=== PATIENT | male | born 1945 | race Caucasian/White ===

== ENCOUNTER 2016-08-11 13:48 | Inpatient (IN) ==
[2016-08-11 14:29] LABS: Bilirubin,Urine Negative (Negative); Blood,Urine Large (Negative); Clarity,Urine Turbid (Clear); Color,Urine Dark Yellow (Yellow); Glucose,Urine (UA) Normal (Normal); Ketones,Urine Negative (Negative); Leukocyte Esterase,Urine Large (Negative); Nitrite,Urine Positive (Negative); PH,Urine 5.5 pH Units (5.0-8.0); Protein,Urine 100 mg/dL (Neg-Trace); Specific Gravity,Urine 1.016 (1.010-1.025); Urobilinogen,Urine Normal (Normal)
[2016-08-11 14:31] LABS: Bacteria,Urine Many per hpf (None-Few); RBC,Urine 30-50 per hpf (0-3); Squamous Epithelial Cell,Urine Many per lpf (None-Few); WBC,Urine TNTC per hpf (0-3)
--- NOTE | 2016-08-11 14:37 | Emergency Department Note ---
Disposition Clinical Impression: Confusion UTI (urinary tract infection) Qualifiers: Urinary tract infection type: acute cystitis Hematuria presence: without hematuria Qualified Code(s): N30.00 - Acute cystitis without hematuria Disposition: Admitted As Inpatient Condition: Fair Referrals: Elie Olivares MD [Primary Care Provider] - Forms: ED Satisfaction Letter Time of Disposition: 16:50 Abdominal Pain HPI - General Chief Complaint: ED Urogenital-Male Stated Complaint: Poss UTI Time Seen by Provider: 08/11/16 14:12 Source: EMS Mode of arrival: EMS Limitations: age, other (Previous CVA) Nursing Notes Reviewed: Yes Vital Signs Reviewed: Yes - History of Present Illness HPI Narrative: 70-year-old comes in with abdominal distention no bowel movement in a week or 2 , states that this occurs when he has a UTI. Y states she can no longer take care of him at home he's had a previous stroke and is dependent for his ADLs. Pt Subjective Complaint: abdominal pain Consistency: intermittent Pain Scale: 0 Quality: cramping Radiation: none Associated symptoms: Reports: constipation. Denies: nausea, vomiting, diarrhea - Related Data Home Medications Medication Instructions Recorded Confirmed Clopidogrel [Plavix] 75 mg PO DAILY 05/31/16 08/11/16 Lisinopril [Zestril] 40 mg PO DAILY 05/31/16 08/11/16 Metoprolol XL (24 HR) Succ [Toprol 50 mg PO DAILY 05/31/16 08/11/16 Xl] Simvastatin [Zocor] 20 mg PO HS 05/31/16 08/11/16 Terazosin [Hytrin] 1 mg PO HS 05/31/16 08/11/16 Venlafaxine XR (24 HR) [Effexor XR] 75 mg PO DAILY 05/31/16 08/11/16 Mirtazapine [Remeron] 15 mg PO HS 08/11/16 08/11/16 Multivitamin [Multi-Day Vitamins] 1 each PO DAILY 08/11/16 08/11/16 Previous Rx's Medication Instructions Recorded Docusate [Colace] 100 mg PO BID PRN #30 capsule 06/02/16 Allergies Allergy/AdvReac Type Severity Reaction Status Date / Time No Known Allergies Allergy Verified 05/30/16 23:20 Limitations: ROS unobtainable due to patients medical condition Abdominal Pain PMH - Past Medical History Medical history: Reports: COPD, CVA, hyperlipidemia, hypertension, renal disease , other Male Surgical History: Reports: other - Social History Smoking status: Former smoker Alcohol use: Reports: none Drug use: Reports: none Physical Exam - General Limitations: other General appearance: alert, in no apparent distress - Head Head exam: atraumatic, normocephalic, normal inspection - Eye Eye exam: Present: normal appearance, PERRL, EOMI - ENT ENT exam: normal exam, normal oropharynx, mucous membranes moist - Neck Neck exam: Present: normal inspection, full ROM, trachea midline - Chest Chest inspection: Present: normal inspection, symmetric chest wall rise - Respiratory Respiratory exam: Present: normal lung sounds bilaterally - Cardiovascular Cardiovascular exam: Present: regular rate, normal rhythm, normal heart sounds - Abdominal Exam Abdominal exam: Present: soft. Absent: guarding, rebound - Extremities Exam Extremities exam: Present: normal inspection, full ROM. Absent: tenderness, pedal edema - Expanded Lower Extremity Exam Neurovascular/Tendon exam: Absent: motor deficit, sensory deficit, tendon deficit Gait: observed and normal - Back Exam Back exam: Present: normal inspection, full ROM. Absent: tenderness - Neurological Exam Neurological exam: Present: alert, oriented X3 - Psychiatric Psychiatric exam: Present: normal affect, normal mood - Skin Skin exam: Present: warm, dry, intact, normal color Course - Consultations Consultation #1: Patient with increased confusion constipation, family states normally has UTI when the symptoms are present. says she cannot take care of the patient at home anymore. administrative services director saw the patient and is going to be in the process of making arrangements to get him into an extended care facility. Is having UTI. I did review his previous culture results he had Escherichia coli that was sensitive to everything we will give Rocephin. Time: 16:48 Vital Signs Temperature 98.6 F 08/11/16 13:52 Pulse Rate 101 08/11/16 13:52 Respiratory Rate 20 08/11/16 13:52 Blood Pressure 122/81 08/11/16 13:52 O2 Sat by Pulse Oximetry 99 08/11/16 13:52 Temperature 98.6 F 08/11/16 13:52 Pulse Rate 92 08/11/16 15:53 Respiratory Rate 20 08/11/16 15:53 Blood Pressure 115/91 08/11/16 15:53 O2 Sat by Pulse Oximetry 99 08/11/16 15:53 Oxygen Delivery Oxygen Delivery Nasal Cannula Abdominal Pain - Lab Data Result diagrams: 08/11/16 15:26 08/11/16 15:26 Lab Results 08/11/16 08/11/16 08/11/16 Range/Units 14:04 15:26 15:26 WBC 12.2 H (4.3-11.1) K/mcL RBC 4.04 L (4.19-5.50) M/mcL Hgb 11.4 L (12.9-16.9) g/dL Hct 37.1 L (37.5-50.1) % MCV 91.8 (83.0-100.0) fL MCH 28.2 (28.0-33.3) pg MCHC 30.7 L (31.6-35.5) g/dL RDW 14.1 (11.5-14.5) % Plt Count 261 (140-400) K/mcL MPV 9.0 L (9.4-12.4) fL Immature Gran % 0.5 (0-4) % Seg Neutrophils % 82.1 % Lymphocytes % 6.7 % Monocytes % 10.6 % Eosinophils % 0.0 % Basophils % 0.1 % Neutrophils # 10.0 H (1.6-8.9) K/mcL Lymphocytes # 0.8 (0.6-4.6) K/mcL Monocytes # 1.3 (0.0-1.3) K/mcL Eosinophils # 0.0 (0.0-0.6) K/mcL Basophils # 0.0 (0.0-0.2) K/mcL Immature Plt Fraction 2.6 (1.1-6.1) % PT 14.4 H (9.4-12.1) Seconds INR 1.3 APTT 28.4 (26.0-36.0) Seconds Sodium (136-145) mEq/L Potassium (3.5-4.5) mEq/L Chloride (98-109) mEq/L Carbon Dioxide (19-29) mEq/L BUN (8-26) mg/dL Creatinine (0.72-1.25) mg/dL Est GFR ( Amer) (> 60) Est GFR (Non-Af Amer) (> 60) BUN/Creatinine Ratio (6-26) Glucose (70-99) mg/dL Calculated Osmolality (280-300) Lactic Acid (0.5-2.2) mmol/L Calcium (8.6-10.8) mg/dL Total Bilirubin (0.2-1.2) mg/dL Direct Bilirubin (0.0-0.5) mg/dL Indirect Bilirubin (0.0-1.2) mg/dL AST (5-34) Units/L ALT (0-55) Units/L Alkaline Phosphatase (38-126) Units/L Troponin I (0-0.03) ng/mL Serum Total Protein (6.0-8.3) g/dL Albumin (3.5-5.0) g/dL Globulin (2.4-3.5) g/dL Albumin/Globulin Ratio (1.1-2.2) Amylase (25-125) Units/L Lipase (8-78) Units/L Urine Color Dark Yellow (Yellow) Urine Clarity Turbid A (Clear) Urine pH 5.5 (5.0-8.0) pH Units Ur Specific [place] 1.016 (1.010-1.025) Urine Protein 100 H (Neg-Trace) mg/dL Urine Glucose (UA) Normal (Normal) mg/dL Urine Ketones Negative (Negative) mg/dL Urine Blood Large H (Negative) Urine Nitrite Positive A (Negative) Urine Bilirubin Negative (Negative) Urine Urobilinogen Normal (Normal) mg/dL Ur Leukocyte Esterase Large H (Negative) Urine Microscopic RBC 30-50 H (0-3) per hpf Urine Microscopic WBC TNTC H (0-3) per hpf Ur Squamous Epith Cells Many H (None-Few) per lpf Urine Bacteria Many H (None-Few) per hpf Hyaline Casts Test Not Performed Ur Culture Indicated? YES A (NO) 08/11/16 08/11/16 08/11/16 Range/Units 15:26 15:26 15:26 WBC (4.3-11.1) K/mcL RBC (4.19-5.50) M/mcL Hgb (12.9-16.9) g/dL Hct (37.5-50.1) % MCV (83.0-100.0) fL MCH (28.0-33.3) pg MCHC (31.6-35.5) g/dL RDW (11.5-14.5) % Plt Count (140-400) K/mcL MPV (9.4-12.4) fL Immature Gran % (0-4) % Seg Neutrophils % % Lymphocytes % % Monocytes % % Eosinophils % % Basophils % % Neutrophils # (1.6-8.9) K/mcL Lymphocytes # (0.6-4.6) K/mcL Monocytes # (0.0-1.3) K/mcL Eosinophils # (0.0-0.6) K/mcL Basophils # (0.0-0.2) K/mcL Immature Plt Fraction (1.1-6.1) % PT (9.4-12.1) Seconds INR APTT (26.0-36.0) Seconds Sodium 140 (136-145) mEq/L Potassium 4.3 (3.5-4.5) mEq/L Chloride 103 (98-109) mEq/L Carbon Dioxide 26 (19-29) mEq/L BUN 20 (8-26) mg/dL Creatinine 1.83 H (0.72-1.25) mg/dL Est GFR ( Amer) 45 L (> 60) Est GFR (Non-Af Amer) 37 L (> 60) BUN/Creatinine Ratio 11 (6-26) Glucose 135 H (70-99) mg/dL Calculated Osmolality 295 (280-300) Lactic Acid 2.6 H (0.5-2.2) mmol/L Calcium 9.5 (8.6-10.8) mg/dL Total Bilirubin 0.7 (0.2-1.2) mg/dL Direct Bilirubin 0.4 (0.0-0.5) mg/dL Indirect Bilirubin 0.3 (0.0-1.2) mg/dL AST 35 H (5-34) Units/L ALT 32 (0-55) Units/L Alkaline Phosphatase 148 H (38-126) Units/L Troponin I 0.01 (0-0.03) ng/mL Serum Total Protein 7.1 (6.0-8.3) g/dL Albumin 2.7 L (3.5-5.0) g/dL Globulin 4.4 H (2.4-3.5) g/dL Albumin/Globulin Ratio 0.6 L (1.1-2.2) Amylase 54 (25-125) Units/L Lipase 21 (8-78) Units/L Urine Color (Yellow) Urine Clarity (Clear) Urine pH (5.0-8.0) pH Units Ur Specific [place] (1.010-1.025) Urine Protein (Neg-Trace) mg/dL Urine Glucose (UA) (Normal) mg/dL Urine Ketones (Negative) mg/dL Urine Blood (Negative) Urine Nitrite (Negative) Urine Bilirubin (Negative) Urine Urobilinogen (Normal) mg/dL Ur Leukocyte Esterase (Negative) Urine Microscopic RBC (0-3) per hpf Urine Microscopic WBC (0-3) per hpf Ur Squamous Epith Cells (None-Few) per lpf Urine Bacteria (None-Few) per hpf Hyaline Casts Ur Culture Indicated? (NO)
[2016-08-11 15:35] LABS: Basophils % 0.1 %; Hematocrit 37.1 % (37.5-50.1); Hemoglobin 11.4 g/dL (12.9-16.9); Immature Granulocytes % 0.5 % (0-4); Immature Platelets 2.6 % (1.1-6.1); Lymphocytes # 0.8 K/mcL (0.6-4.6); Lymphocytes % 6.7 %; Mean Corpuscular HGB Conc 30.7 g/dL (31.6-35.5); Mean Corpuscular Hemoglobin 28.2 pg (28.0-33.3); Mean Corpuscular Volume 91.8 fL (83.0-100.0); Monocytes # 1.3 K/mcL (0.0-1.3); Monocytes % 10.6 %; Platelet Count 261 K/mcL (140-400); Red Blood Count 4.04 M/mcL (4.19-5.50); Red Cell Distribution Width 14.1 % (11.5-14.5); Segmented Neutrophils % 82.1 %
[2016-08-11 15:40] LABS: INR 1.3; Prothrombin Time 14.4 Seconds (9.4-12.1)
[2016-08-11 15:42] LABS: Activated Partial Thrombo Time 28.4 Seconds (26.0-36.0)
[2016-08-11 15:50] LABS: Albumin 2.7 g/dL (3.5-5.0); Albumin/Globulin Ratio 0.6 (1.1-2.2); Bilirubin,Direct 0.4 mg/dL (0.0-0.5); Bilirubin,Indirect 0.3 mg/dL (0.0-1.2); Bilirubin,Total 0.7 mg/dL (0.2-1.2); Calcium 9.5 mg/dL (8.6-10.8); Globulin 4.4 g/dL (2.4-3.5); Potassium 4.3 mEq/L (3.5-4.5); Total Protein 7.1 g/dL (6.0-8.3)
[2016-08-11] MEDS ORDERED: Ondansetron 4 MG/2 ML VIAL IVP PRN (17:45)
[2016-08-11] MEDS ORDERED: Naloxone 0.4 MG/ML INJ IVP PRN (17:45)
--- NOTE | 2016-08-11 18:34 | Internal Med History&Physical ---
Date of Encounter: 08/11/16 Time of Encounter: 18:28 Assessment and Plan (1) UTI (urinary tract infection) Current visit: Yes Status: Acute roxanna continue ceftriaxone. follow urine cx results. not septic at this time. mental status at baseline. Qualifiers: Urinary tract infection type: acute cystitis Hematuria presence: without hematuria Qualified Code(s): N30.00 - Acute cystitis without hematuria (2) BPH (benign prostatic hypertrophy) Current visit: No Status: Acute Continue home meds. Wears diaper due to urinary incontinence. Qualifiers: Prostatic enlargement morphology: unspecified morphology Lower urinary tract symptom presence: symptoms present Qualified Code(s): N40.1 - Benign prostatic hyperplasia with lower urinary tract symptoms (3) COPD (chronic obstructive pulmonary disease) Current visit: No Status: Acute Stable, not in exacerbation. Qualifiers: COPD type: unspecified COPD Qualified Code(s): J44.9 - Chronic obstructive pulmonary disease, unspecified (4) HLD (hyperlipidemia) Current visit: No Status: Acute Continue all medication. Qualifiers: Hyperlipidemia type: unspecified Qualified Code(s): E78.5 - Hyperlipidemia , unspecified (5) History of CVA (cerebrovascular accident) Current visit: No Status: Acute Residual right-sided weakness. We will consult bedside PT OT. Fall and aspiration precautions. (6) HTN (hypertension) Current visit: No Status: Chronic Blood pressure stable. Continue BP medications. Qualifiers: Hypertension type: essential hypertension Qualified Code(s): I10 - Essential (primary) hypertension (7) CKD (chronic kidney disease) stage 3, GFR 30-59 ml/min Current visit: No Status: Chronic GFR at baseline. will monitor Internal Medicine - H&P: HPI Chief complaint: feeling ill Admitted From: Home Plans for Post Hospital Care: Transfer Inp Rehab Fac History of present illness: Mr. 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 Patient is almost nonverbal and cannot carry on meaningful conversation. History was obtained from the . As per the she thought that the patient did not look good, ever since he came back from the [facility] in June she says he has not been able to walk and he has health condition has deteriorated. He has baseline dementia and has residual right-sided weakness from the stroke in the past. He is dependent for his ADLs, has home health 2 times a week and the takes care of him. There is no history of nausea, vomiting, abdominal pain, dysuria, she says he was feverish but no documented fever at home. as per the , the mental status is pretty much at baseline HE hasa h/o UTI in the past, does not have indwelling catheter and wears a diaper for incontinence. Past Med Surg Social Fam HX - Past Medical History Medical history: COPD, CVA, hyperlipidemia, hypertension, renal disease, other - Social History Smoking Status: Former smoker Smokeless Tobacco Status: Yes (chews tobacco) Alcohol use: none Drug use: none - Family History Mother Living Status: Hx Family Cancer: Yes (lung) Father Living Status: Hx Family Cardiac Disorders: Yes ([place]) Sister Living Status: Hx Family Cancer: Yes (lung) Brother Living Status: Hx Family Cancer: Yes (lung) Internal Medicine - H&P: Meds Clopidogrel [Plavix] 75 mg PO DAILY 05/31/16 [History] Lisinopril [Zestril] 40 mg PO DAILY 05/31/16 [History] Metoprolol XL (24 HR) Succ [Toprol Xl] 50 mg PO DAILY 05/31/16 [History] Simvastatin [Zocor] 20 mg PO HS 05/31/16 [History] Terazosin [Hytrin] 1 mg PO HS 05/31/16 [History] Venlafaxine XR (24 HR) [Effexor XR] 75 mg PO DAILY 05/31/16 [History] Docusate [Colace] 100 mg PO BID PRN #30 capsule 06/02/16 [Rx] Mirtazapine [Remeron] 15 mg PO HS 08/11/16 [History] Multivitamin [Multi-Day Vitamins] 1 each PO DAILY 08/11/16 [History] Allergies No Known Allergies Allergy (Verified 05/30/16 23:20) All Systems PM: A 10-system review of systems was performed and is negative for pertinent findings except as documented above in the HPI. - Constitutional Constitutional: no chills, no fever(s), no night sweats - EENT Eyes: no change in vision, no discharge, no pain, no photophobia Ears: no ear discharge, no ear pain, no tinnitus Nose, mouth and throat: no dysphagia, no nasal discharge, no neck pain, no sore throat - Cardiovascular Cardiovascular ROS IM: no chest pain, no diaphoresis, no dyspnea, no lightheadedness, no palpitations, no syncope - Respiratory Respiratory: no cough, no dyspnea, no wheezing, no excessive phlegm production - Gastrointestinal Gastrointestinal: no abdominal pain, no diarrhea, no hematemesis, no hematochezia, no melena, no nausea, no vomiting - Musculoskeletal Musculoskeletal ROS IM: no numbness, no tingling - Constitutional Vitals: Temp Pulse Resp BP Pulse Ox 98.6 F 95 20 137/67 97 08/11/16 13:52 08/11/16 17:37 08/11/16 17:49 08/11/16 17:49 08/11/16 17:37 General appearance: Present: A&O X 1, disheveled, no acute distress Exam: neck- supple chest- b/l clear, no added sounds CVS-s1 and s2, no mr/g abd-soft non tender, bs are present ext- no edema neuro-has right sided weakness which is chronic. Internal Med - H&P Results - Labs CBC & Chem 7: 08/11/16 15:26 08/11/16 15:26
[2016-08-11] MEDS ORDERED: Milk and Molasses Enema 200 ML RC ONE (18:45)
--- NOTE | 2016-08-11 18:54 | Internal Med History&Physical ---
Date of Encounter: 08/11/16 Time of Encounter: 18:51 Assessment and Plan (1) Sepsis Current visit: No Status: Acute sepsis 2/2 UTI /pyelonephritis. abd CT shows perinephric stranding, started on IV ceftriaone, will send blood cx X2, follow urine cx. repeat lactate, now its 2.6 start IVF. monitor cbc, leucocytosis of 12. Qualifiers: Sepsis type: sepsis due to unspecified organism Qualified Code(s): A41.9 - Sepsis, unspecified organism (2) UTI (urinary tract infection) Current visit: Yes Status: Acute roxanna continue ceftriaxone. follow urine cx results. has one temp spike of 101, fulfills sepsis criteria. abd CT shows perinephric stranding concerning for pyelonephritis. mental status at baseline. Qualifiers: Urinary tract infection type: acute cystitis Hematuria presence: without hematuria Qualified Code(s): N30.00 - Acute cystitis without hematuria (3) BPH (benign prostatic hypertrophy) Current visit: No Status: Acute Continue home meds. Wears diaper due to urinary incontinence. Qualifiers: Prostatic enlargement morphology: unspecified morphology Lower urinary tract symptom presence: symptoms present Qualified Code(s): N40.1 - Benign prostatic hyperplasia with lower urinary tract symptoms (4) COPD (chronic obstructive pulmonary disease) Current visit: No Status: Acute Stable, not in exacerbation. Qualifiers: COPD type: unspecified COPD Qualified Code(s): J44.9 - Chronic obstructive pulmonary disease, unspecified (5) HLD (hyperlipidemia) Current visit: No Status: Acute Continue all medication. Qualifiers: Hyperlipidemia type: unspecified Qualified Code(s): E78.5 - Hyperlipidemia , unspecified (6) History of CVA (cerebrovascular accident) Current visit: No Status: Acute Residual right-sided weakness. We will consult bedside PT OT. Fall and aspiration precautions. (7) HTN (hypertension) Current visit: No Status: Chronic Blood pressure stable. Continue BP medications. Qualifiers: Hypertension type: essential hypertension Qualified Code(s): I10 - Essential (primary) hypertension (8) CKD (chronic kidney disease) stage 3, GFR 30-59 ml/min Current visit: No Status: Chronic GFR at baseline. will monitor Internal Medicine - H&P: HPI Chief complaint: feeling ill Admitted From: Home Plans for Post Hospital Care: Home History of present illness: Mr. 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 Patient is almost nonverbal and cannot carry on meaningful conversation. History was obtained from the . As per the she thought that the patient did not look good, ever since he came back from the [facility] in June she says he has not been able to walk and he has health condition has deteriorated. He has baseline dementia and has residual right-sided weakness from the stroke in the past. He is dependent for his ADLs, has home health 2 times a week and the takes care of him. There is no history of nausea, vomiting, abdominal pain, dysuria, she says he was feverish but no documented fever at home. as per the , the mental status is pretty much at baseline. reports that he has not moved his bowels for 2 weeks now. HE hasa h/o UTI in the past, does not have indwelling catheter and wears a diaper for incontinence. Past Med Surg Social Fam HX - Past Medical History Medical history: COPD, CVA, hyperlipidemia, hypertension, renal disease, other - Social History Smoking Status: Former smoker Smokeless Tobacco Status: Yes (chews tobacco) Alcohol use: none Drug use: none - Family History Mother Living Status: Hx Family Cancer: Yes (lung) Father Living Status: Hx Family Cardiac Disorders: Yes ([place]) Sister Living Status: Hx Family Cancer: Yes (lung) Brother Living Status: Hx Family Cancer: Yes (lung) Internal Medicine - H&P: Meds Clopidogrel [Plavix] 75 mg PO DAILY 05/31/16 [History] Lisinopril [Zestril] 40 mg PO DAILY 05/31/16 [History] Metoprolol XL (24 HR) Succ [Toprol Xl] 50 mg PO DAILY 05/31/16 [History] Simvastatin [Zocor] 20 mg PO HS 05/31/16 [History] Terazosin [Hytrin] 1 mg PO HS 05/31/16 [History] Venlafaxine XR (24 HR) [Effexor XR] 75 mg PO DAILY 05/31/16 [History] Docusate [Colace] 100 mg PO BID PRN #30 capsule 06/02/16 [Rx] Mirtazapine [Remeron] 15 mg PO HS 08/11/16 [History] Multivitamin [Multi-Day Vitamins] 1 each PO DAILY 08/11/16 [History] Allergies No Known Allergies Allergy (Verified 05/30/16 23:20) ROS unobtainable: due to mental status All Systems PM: A 10-system review of systems was performed and is negative for pertinent findings except as documented above in the HPI. - Constitutional Constitutional: no chills, no fever(s), no night sweats - EENT Eyes: no change in vision, no discharge, no pain, no photophobia - Constitutional Vitals: Temp Pulse Resp BP Pulse Ox 101.6 F H 99 16 122/65 96 08/11/16 18:36 08/11/16 18:36 08/11/16 18:36 08/11/16 18:36 08/11/16 18:36 General appearance: Present: A&O X 1, disheveled, no acute distress Exam: neck- supple chest- b/l clear, no added sounds CVS-s1 and s2, no mr/g abd-soft non tender, bs are present ext- no edema neuro-has right sided weakness which is chronic. Internal Med - H&P Results - Labs CBC & Chem 7: 08/11/16 15:26 08/11/16 15:26
[2016-08-11] MEDS: Acetaminophen 325 MG TABLET PO PRN (19:34)
[2016-08-11] MEDS: *HR* Heparin 5,000 UNIT/ML VIAL SQ SCH (19:35)
[2016-08-11] MEDS: 0.9 % Sodium Chloride 1,000 ML IVC SCH (19:42)
[2016-08-12] MEDS: Acetaminophen 325 MG TABLET PO PRN ×2 (03:52→23:26)
[2016-08-12 05:44] LABS: Basophils % 0.2 %; Hematocrit 31.3 % (37.5-50.1); Immature Granulocytes % 0.4 % (0-4); Lymphocytes # 0.7 K/mcL (0.6-4.6); Lymphocytes % 6.6 %; Mean Corpuscular HGB Conc 31.9 g/dL (31.6-35.5); Mean Corpuscular Hemoglobin 28.7 pg (28.0-33.3); Mean Corpuscular Volume 89.9 fL (83.0-100.0); Mean Platelet Volume 9.6 fL (9.4-12.4); Monocytes # 1.3 K/mcL (0.0-1.3); Platelet Count 215 K/mcL (140-400); Red Blood Count 3.48 M/mcL (4.19-5.50); Red Cell Distribution Width 14.4 % (11.5-14.5); Segmented Neutrophils % 80.8 %
[2016-08-12] MEDS: 0.9 % Sodium Chloride 1,000 ML IVC SCH ×2 (05:51→18:34)
[2016-08-12 06:05] LABS: Calcium 8.6 mg/dL (8.6-10.8); Potassium 3.7 mEq/L (3.5-4.5)
[2016-08-12] MEDS: *HR* Heparin 5,000 UNIT/ML VIAL SQ SCH ×2 (06:19→19:26)
[2016-08-12] MEDS: Metoprolol XL (24 HR) Succ 50 MG TAB.ER.24H PO SCH (10:09)
[2016-08-12] MEDS: Venlafaxine XR (24 HR) 75 MG CAP.ER.24H PO SCH (10:09)
[2016-08-12] MEDS: Lisinopril 20 MG TABLET PO SCH (10:09)
[2016-08-12] MEDS: Multivit/Ca/Min/Fe/FA 1 TAB TABLET PO SCH (10:10)
--- NOTE | 2016-08-12 16:18 | Internal Med Progress Note ---
Date of Encounter: 08/12/16 Time of Encounter: 16:16 - Assessment and plan (1) Sepsis Current Visit: No Status: Acute Assessment and plan: sepsis 2/2 UTI /pyelonephritis, resolved today abd CT shows perinephric stranding, started on IV ceftriaone, Urine culture growing gram-negative rods, will follow final culture results. repeat lactate normal. Continue IV fluids for now. monitor cbc, leucocytosis has improved today. Qualifiers: Sepsis type: sepsis due to unspecified organism Qualified Code(s): A41.9 - Sepsis, unspecified organism (2) UTI (urinary tract infection) Current Visit: Yes Status: Acute Assessment and plan: as above Qualifiers: Urinary tract infection type: acute cystitis Hematuria presence: without hematuria Qualified Code(s): N30.00 - Acute cystitis without hematuria (3) BPH (benign prostatic hypertrophy) Current Visit: No Status: Acute Assessment and plan: Continue home meds. Wears diaper due to urinary incontinence. Qualifiers: Prostatic enlargement morphology: unspecified morphology Lower urinary tract symptom presence: symptoms present Qualified Code(s): N40.1 - Benign prostatic hyperplasia with lower urinary tract symptoms (4) COPD (chronic obstructive pulmonary disease) Current Visit: No Status: Acute Assessment and plan: Stable, not in exacerbation. Qualifiers: COPD type: unspecified COPD Qualified Code(s): J44.9 - Chronic obstructive pulmonary disease, unspecified (5) HLD (hyperlipidemia) Current Visit: No Status: Acute Qualifiers: Hyperlipidemia type: unspecified Qualified Code(s): E78.5 - Hyperlipidemia , unspecified (6) History of CVA (cerebrovascular accident) Current Visit: No Status: Acute (7) HTN (hypertension) Current Visit: No Status: Chronic Assessment and plan: Blood pressure stable. Continue BP medications. Qualifiers: Hypertension type: essential hypertension Qualified Code(s): I10 - Essential (primary) hypertension (8) CKD (chronic kidney disease) stage 3, GFR 30-59 ml/min Current Visit: No Status: Chronic - Time Spent With Patient 25 - 35 minutes - Subjective Interval history: Patient seen at the bedside, does not communicate much. Does not appear to be in any acute distress. Afebrile today. - Constitutional Vitals: Temp Pulse Resp BP Pulse Ox 98.2 F 90 16 113/71 97 08/12/16 15:00 08/12/16 15:10 08/12/16 15:10 08/12/16 15:10 08/12/16 15:10 General appearance: Present: A&O X 1, disheveled, no acute distress Exam: neck- supple chest- b/l clear, no added sounds CVS-s1 and s2, no mr/g abd-soft non tender, bs are present ext- no edema neuro-has right sided weakness which is chronic. Internal Medicine: Result - Labs CBC & Chem 7: 08/12/16 05:16 08/12/16 05:16 Labs: Short CBC 08/12/16 Range/Units 05:16 WBC 11.2 H (4.3-11.1) K/mcL Hgb 10.0 L (12.9-16.9) g/dL Hct 31.3 L (37.5-50.1) % Plt Count 215 (140-400) K/mcL Neutrophils # 9.0 H (1.6-8.9) K/mcL BMP 08/12/16 05:16 Sodium 137 Potassium 3.7 Chloride 105 Carbon Dioxide 23 BUN 23 Creatinine 1.68 H Glucose 107 H Calcium 8.6 - ABG Interpretation ABG results: PT/INR, D-dimer PT 14.4 Seconds (9.4-12.1) H 08/11/16 15:26 Consult Discharge Plan - Plan Referrals: Elie Olivares MD [Primary Care Provider] -
[2016-08-12] MEDS: Mirtazapine 15 MG TABLET PO SCH (20:11)
[2016-08-13] MEDS: 0.9 % Sodium Chloride 1,000 ML IVC SCH (02:33)
[2016-08-13] MEDS: *HR* Heparin 5,000 UNIT/ML VIAL SQ SCH ×2 (06:02→17:37)
[2016-08-13] MEDS: Acetaminophen 325 MG TABLET PO PRN (06:03)
[2016-08-13] MEDS: Lisinopril 20 MG TABLET PO SCH (08:23)
[2016-08-13] MEDS: Metoprolol XL (24 HR) Succ 50 MG TAB.ER.24H PO SCH (08:23)
[2016-08-13] MEDS: Multivit/Ca/Min/Fe/FA 1 TAB TABLET PO SCH (08:23)
[2016-08-13] MEDS: Venlafaxine XR (24 HR) 75 MG CAP.ER.24H PO SCH (08:24)
[2016-08-13 13:30] LABS: Basophils % 0.3 %; Eosinophils % 0.5 %; Hemoglobin 10.1 g/dL (12.9-16.9); Immature Granulocytes % 0.4 % (0-4); Lymphocytes # 0.8 K/mcL (0.6-4.6); Lymphocytes % 10.5 %; Mean Corpuscular HGB Conc 31.6 g/dL (31.6-35.5); Mean Corpuscular Hemoglobin 28.9 pg (28.0-33.3); Mean Corpuscular Volume 91.7 fL (83.0-100.0); Mean Platelet Volume 9.4 fL (9.4-12.4); Monocytes # 0.5 K/mcL (0.0-1.3); Neutrophils # 6.1 K/mcL (1.6-8.9); Platelet Count 256 K/mcL (140-400); Red Blood Count 3.49 M/mcL (4.19-5.50); Red Cell Distribution Width 14.4 % (11.5-14.5); Segmented Neutrophils % 81.3 %
[2016-08-13 13:44] LABS: Calcium 8.4 mg/dL (8.6-10.8); Potassium 3.4 mEq/L (3.5-4.5)
--- NOTE | 2016-08-13 17:53 | Internal Med Progress Note ---
Date of Encounter: 08/13/16 Time of Encounter: 17:50 - Assessment and plan (1) Sepsis Current Visit: No Status: Acute Assessment and plan: sepsis 2/2 UTI /pyelonephritis, resolved . abd CT shows perinephric stranding, started on IV ceftriaone, Urine culture growing gram-negative rods, will follow final culture results. repeat lactate normal. will stop IVF, eating normally monitor cbc, leucocytosis has improved today. Qualifiers: Sepsis type: sepsis due to unspecified organism Qualified Code(s): A41.9 - Sepsis, unspecified organism (2) UTI (urinary tract infection) Current Visit: Yes Status: Acute Assessment and plan: as above Qualifiers: Urinary tract infection type: acute cystitis Hematuria presence: without hematuria Qualified Code(s): N30.00 - Acute cystitis without hematuria (3) BPH (benign prostatic hypertrophy) Current Visit: No Status: Acute Assessment and plan: Continue home meds. Wears diaper due to urinary incontinence. Qualifiers: Prostatic enlargement morphology: unspecified morphology Lower urinary tract symptom presence: symptoms present Qualified Code(s): N40.1 - Benign prostatic hyperplasia with lower urinary tract symptoms (4) COPD (chronic obstructive pulmonary disease) Current Visit: No Status: Acute Assessment and plan: Stable, not in exacerbation. Qualifiers: COPD type: unspecified COPD Qualified Code(s): J44.9 - Chronic obstructive pulmonary disease, unspecified (5) HLD (hyperlipidemia) Current Visit: No Status: Acute Qualifiers: Hyperlipidemia type: unspecified Qualified Code(s): E78.5 - Hyperlipidemia , unspecified (6) History of CVA (cerebrovascular accident) Current Visit: No Status: Acute (7) HTN (hypertension) Current Visit: No Status: Chronic Assessment and plan: Blood pressure stable. Continue BP medications. Qualifiers: Hypertension type: essential hypertension Qualified Code(s): I10 - Essential (primary) hypertension (8) CKD (chronic kidney disease) stage 3, GFR 30-59 ml/min Current Visit: No Status: Chronic - Time Spent With Patient 25 - 35 minutes - Subjective Interval history: Patient seen at the bedside, does not communicate much. Does not appear to be in any acute distress. Afebrile today. PT OT recommended ECF transfer, will need social work assistance for placement. - Constitutional Vitals: Temp Pulse Resp BP Pulse Ox 98.7 F 79 16 130/70 96 08/13/16 15:00 08/13/16 15:00 08/13/16 15:00 08/13/16 15:00 08/13/16 15:00 General appearance: Present: A&O X 1, disheveled, no acute distress Exam: neck- supple chest- b/l clear, no added sounds CVS-s1 and s2, no mr/g abd-soft non tender, bs are present ext- no edema neuro-has right sided weakness which is chronic. Internal Medicine: Result - Labs CBC & Chem 7: 08/13/16 13:24 08/13/16 13:24 Labs: Short CBC 08/13/16 Range/Units 13:24 WBC 7.6 (4.3-11.1) K/mcL Hgb 10.1 L (12.9-16.9) g/dL Hct 32.0 L (37.5-50.1) % Plt Count 256 (140-400) K/mcL Neutrophils # 6.1 (1.6-8.9) K/mcL BMP 08/13/16 13:24 Sodium 138 Potassium 3.4 L Chloride 107 Carbon Dioxide 23 BUN 22 Creatinine 1.67 H Glucose 121 H Calcium 8.4 L - ABG Interpretation ABG results: PT/INR, D-dimer PT 14.4 Seconds (9.4-12.1) H 08/11/16 15:26 Consult Discharge Plan - Plan Referrals: Elie Olivares MD [Primary Care Provider] -
[2016-08-13] MEDS: Mirtazapine 15 MG TABLET PO SCH (20:29)
[2016-08-14] MEDS: Acetaminophen 325 MG TABLET PO PRN (00:06)
[2016-08-14] MEDS: *HR* Heparin 5,000 UNIT/ML VIAL SQ SCH ×2 (06:02→19:22)
[2016-08-14] MEDS: Multivit/Ca/Min/Fe/FA 1 TAB TABLET PO SCH (08:23)
[2016-08-14] MEDS: Venlafaxine XR (24 HR) 75 MG CAP.ER.24H PO SCH (08:23)
[2016-08-14] MEDS: Lisinopril 20 MG TABLET PO SCH (08:24)
[2016-08-14] MEDS: Metoprolol XL (24 HR) Succ 50 MG TAB.ER.24H PO SCH (08:24)
[2016-08-14] MEDS: Ertapenem 1,000 MG in 0.9 % Sodium Chloride Mini Bag 100 ML IVPB SCH (09:55)
[2016-08-14 11:05] LABS: Hematocrit 28.8 % (37.5-50.1); Hemoglobin 9.4 g/dL (12.9-16.9); Mean Corpuscular HGB Conc 32.6 g/dL (31.6-35.5); Mean Corpuscular Volume 88.9 fL (83.0-100.0); Mean Platelet Volume 9.4 fL (9.4-12.4); Platelet Count 292 K/mcL (140-400); Red Blood Count 3.24 M/mcL (4.19-5.50); Red Cell Distribution Width 14.3 % (11.5-14.5)
[2016-08-14 11:17] LABS: BUN/Creatinine Ratio 16 (6-26); Blood Urea Nitrogen 21 mg/dL (8-26); Calcium 8.8 mg/dL (8.6-10.8); Carbon Dioxide 23 mEq/L (19-29); Chloride 106 mEq/L (98-109); Glucose 96 mg/dL (70-99); Magnesium 1.8 mg/dL (1.6-2.6); Osmolality,Calculated 291 (280-300); Potassium 3.4 mEq/L (3.5-4.5); Sodium 139 mEq/L (136-145); eGFR For African Americans > 60 (> 60); eGFR For Non-African Americans 53 (> 60)
--- NOTE | 2016-08-14 18:56 | Internal Med Progress Note ---
Date of Encounter: 08/14/16 Time of Encounter: 18:52 - Assessment and plan (1) Sepsis Current Visit: No Status: Acute Assessment and plan: sepsis 2/2 UTI /pyelonephritis, resolved . abd CT shows perinephric stranding, started on IV ceftriaone, Urine culture grew ESBL, antibiotics has been changed to meropenem. will stop IVF, eating normally monitor cbc, leucocytosis has improved today. Qualifiers: Sepsis type: sepsis due to unspecified organism Qualified Code(s): A41.9 - Sepsis, unspecified organism (2) UTI (urinary tract infection) Current Visit: Yes Status: Acute Assessment and plan: as above may prob dc on cefoxitin once able as that is sensitive from microbiology. Qualifiers: Urinary tract infection type: acute cystitis Hematuria presence: without hematuria Qualified Code(s): N30.00 - Acute cystitis without hematuria (3) BPH (benign prostatic hypertrophy) Current Visit: No Status: Acute Assessment and plan: Continue home meds. Wears diaper due to urinary incontinence. Qualifiers: Prostatic enlargement morphology: unspecified morphology Lower urinary tract symptom presence: symptoms present Qualified Code(s): N40.1 - Benign prostatic hyperplasia with lower urinary tract symptoms (4) COPD (chronic obstructive pulmonary disease) Current Visit: No Status: Acute Assessment and plan: Stable, not in exacerbation. Qualifiers: COPD type: unspecified COPD Qualified Code(s): J44.9 - Chronic obstructive pulmonary disease, unspecified (5) HLD (hyperlipidemia) Current Visit: No Status: Acute Qualifiers: Hyperlipidemia type: unspecified Qualified Code(s): E78.5 - Hyperlipidemia , unspecified (6) History of CVA (cerebrovascular accident) Current Visit: No Status: Acute (7) HTN (hypertension) Current Visit: No Status: Chronic Assessment and plan: Blood pressure stable. Continue BP medications. Qualifiers: Hypertension type: essential hypertension Qualified Code(s): I10 - Essential (primary) hypertension (8) CKD (chronic kidney disease) stage 3, GFR 30-59 ml/min Current Visit: No Status: Chronic - Time Spent With Patient 25 - 35 minutes - Subjective Interval history: Patient seen at the bedside, does not communicate much. Does not appear to be in any acute distress. Afebrile today. Urine culture grew ESBL, antibiotics have been changed today. PT OT recommended ECF transfer, will need social work assistance for placement. - Constitutional Vitals: Temp Pulse Resp BP Pulse Ox 97.2 F L 94 16 148/76 96 08/14/16 15:00 08/14/16 15:00 08/14/16 15:00 08/14/16 15:00 08/14/16 15:00 General appearance: Present: A&O X 1, no acute distress Exam: neck- supple chest- b/l clear, no added sounds CVS-s1 and s2, no mr/g abd-soft non tender, bs are present ext- no edema neuro-has right sided weakness which is chronic. Internal Medicine: Result - Labs CBC & Chem 7: 08/14/16 10:48 08/14/16 10:48 Labs: Short CBC 08/14/16 Range/Units 10:48 WBC 7.0 (4.3-11.1) K/mcL Hgb 9.4 L (12.9-16.9) g/dL Hct 28.8 L (37.5-50.1) % Plt Count 292 (140-400) K/mcL BMP 08/14/16 10:48 Sodium 139 Potassium 3.4 L Chloride 106 Carbon Dioxide 23 BUN 21 Creatinine 1.34 H Glucose 96 Calcium 8.8 - ABG Interpretation ABG results: PT/INR, D-dimer PT 14.4 Seconds (9.4-12.1) H 08/11/16 15:26 Consult Discharge Plan - Plan Referrals: Elie Olivares MD [Primary Care Provider] - 08/21/16 1:15 pm
[2016-08-14] MEDS: Mirtazapine 15 MG TABLET PO SCH (19:57)
[2016-08-15] MEDS: *HR* Heparin 5,000 UNIT/ML VIAL SQ SCH ×2 (06:23→18:44)
[2016-08-15] MEDS: Metoprolol XL (24 HR) Succ 50 MG TAB.ER.24H PO SCH (07:52)
[2016-08-15] MEDS: Venlafaxine XR (24 HR) 75 MG CAP.ER.24H PO SCH (07:52)
[2016-08-15] MEDS: Lisinopril 20 MG TABLET PO SCH (07:52)
[2016-08-15] MEDS: Ertapenem 1,000 MG in 0.9 % Sodium Chloride Mini Bag 100 ML IVPB SCH (07:52)
[2016-08-15] MEDS: Multivit/Ca/Min/Fe/FA 1 TAB TABLET PO SCH (07:52)
--- NOTE | 2016-08-15 17:09 | Internal Med Progress Note ---
Date of Encounter: 08/15/16 Time of Encounter: 08:20 - Assessment and plan (1) UTI (urinary tract infection) Current Visit: Yes Status: Acute Assessment and plan: resolved sepsis; urine culture grows ESBL-E.coli and patient started on IV Ertapenem; continue the same to complete a 14-day course; will need an extended peripheral line for IV antibiotics; PT consult recommends SNF placement, support services coordinator on board, pending placement; medically stable; Qualifiers: Urinary tract infection type: acute cystitis Hematuria presence: without hematuria Qualified Code(s): N30.00 - Acute cystitis without hematuria (2) BPH (benign prostatic hypertrophy) Current Visit: Yes Status: Chronic Assessment and plan: Continue home meds. Wears diaper due to urinary incontinence. Qualifiers: Prostatic enlargement morphology: unspecified morphology Lower urinary tract symptom presence: symptoms present Qualified Code(s): N40.1 - Benign prostatic hyperplasia with lower urinary tract symptoms (3) COPD (chronic obstructive pulmonary disease) Current Visit: Yes Status: Chronic Assessment and plan: not noted to be in acute exacerbation; continue PRN bronchodilators and supplemental O2; Qualifiers: COPD type: unspecified COPD Qualified Code(s): J44.9 - Chronic obstructive pulmonary disease, unspecified (4) HLD (hyperlipidemia) Current Visit: Yes Status: Chronic Qualifiers: Hyperlipidemia type: unspecified Qualified Code(s): E78.5 - Hyperlipidemia , unspecified (5) Sepsis Current Visit: Yes Status: Resolved Qualifiers: Sepsis type: Escherichia coli Qualified Code(s): A41.51 - Sepsis due to Escherichia coli [E. coli] (6) CKD (chronic kidney disease) stage 3, GFR 30-59 ml/min Current Visit: Yes Status: Chronic (7) HTN (hypertension) Current Visit: Yes Status: Chronic Qualifiers: Hypertension type: essential hypertension Qualified Code(s): I10 - Essential (primary) hypertension - Subjective Interval history: Unable to answer appropriately; answers to his name; no reported pain, not noted to be in distress; good appetite with assisted feeds; awaiting placement in rehab; - Constitutional Vitals: Temp Pulse Resp BP Pulse Ox 97.4 F L 80 18 155/89 98 08/15/16 14:11 08/15/16 14:11 08/15/16 14:11 08/15/16 14:11 08/15/16 14:11 General appearance: Present: A&O X 1 - Respiratory Respiratory exam: Present: CTAB. Absent: accessory muscle use, rales, rhonchi, wheezes - Cardiovascular Cardiovascular exam: Present: RRR, +S1, +S2. Absent: diastolic murmur, gallop, rubs, systolic murmur Internal Medicine: Result - Labs CBC & Chem 7: 08/14/16 10:48 08/14/16 10:48 - ABG Interpretation ABG results: PT/INR, D-dimer PT 14.4 Seconds (9.4-12.1) H 08/11/16 15:26 Consult Discharge Plan - Plan Referrals: Elie Olivares MD [Primary Care Provider] - 08/21/16 1:15 pm
[2016-08-15] MEDS: Mirtazapine 15 MG TABLET PO SCH (21:32)
[2016-08-16] MEDS: *HR* Heparin 5,000 UNIT/ML VIAL SQ SCH ×2 (06:25→18:08)
--- NOTE | 2016-08-16 09:12 | Internal Med Progress Note ---
Date of Encounter: 08/16/16 Time of Encounter: 09:11 - Assessment and plan (1) UTI (urinary tract infection) Current Visit: Yes Status: Acute Assessment and plan: resolved sepsis; complicated UTI due to BPH. urine culture grows ESBL-E.coli and patient started on IV Ertapenem; continue the same to complete a 14-day course, day 3/14; received an extended peripheral line for IV antibiotics; PT consult recommends SNF placement, student services dean on board, pending placement; medically stable; Qualifiers: Urinary tract infection type: acute cystitis Hematuria presence: without hematuria Qualified Code(s): N30.00 - Acute cystitis without hematuria (2) BPH (benign prostatic hypertrophy) Current Visit: Yes Status: Chronic Assessment and plan: Continue home meds. Wears diaper due to urinary incontinence. Qualifiers: Prostatic enlargement morphology: unspecified morphology Lower urinary tract symptom presence: symptoms present Qualified Code(s): N40.1 - Benign prostatic hyperplasia with lower urinary tract symptoms (3) COPD (chronic obstructive pulmonary disease) Current Visit: Yes Status: Chronic Assessment and plan: not noted to be in acute exacerbation; continue PRN bronchodilators and supplemental O2; Qualifiers: COPD type: unspecified COPD Qualified Code(s): J44.9 - Chronic obstructive pulmonary disease, unspecified (4) HLD (hyperlipidemia) Current Visit: Yes Status: Chronic Qualifiers: Hyperlipidemia type: unspecified Qualified Code(s): E78.5 - Hyperlipidemia , unspecified (5) Sepsis Current Visit: Yes Status: Resolved Qualifiers: Sepsis type: Escherichia coli Qualified Code(s): A41.51 - Sepsis due to Escherichia coli [E. coli] (6) CKD (chronic kidney disease) stage 3, GFR 30-59 ml/min Current Visit: Yes Status: Chronic (7) HTN (hypertension) Current Visit: Yes Status: Chronic Assessment and plan: Blood pressure stable. Continue BP medications. Qualifiers: Hypertension type: essential hypertension Qualified Code(s): I10 - Essential (primary) hypertension - Subjective Interval history: Noted to be sitting up in bed, eating breakfast. Noted to have good appetite. Able to tell me his name but otherwise answers inappropriately and talks randomly. No reported fever, vomiting, diarrhea, pain. - Constitutional Vitals: Temp Pulse Resp BP Pulse Ox 98.6 F 88 14 139/85 95 08/16/16 08:47 08/16/16 08:47 08/16/16 08:47 08/16/16 08:47 08/16/16 08:47 General appearance: Present: A&O X 1 - Respiratory Respiratory exam: Present: CTAB. Absent: accessory muscle use, rales, rhonchi, wheezes - Cardiovascular Cardiovascular exam: Present: RRR, +S1, +S2. Absent: diastolic murmur, gallop, rubs, systolic murmur - GI/Abdominal GI/Abdominal exam: Present: normal bowel sounds, soft, no peritoneal signs. Absent: distended, tenderness - Extremities Exam Extremities exam: Present: full ROM, warm, radial pulses palpable and symetrical. Absent: calf tenderness, cyanotic, pedal edema Internal Medicine: Result - Labs CBC & Chem 7: 08/14/16 10:48 08/14/16 10:48 - ABG Interpretation ABG results: PT/INR, D-dimer PT 14.4 Seconds (9.4-12.1) H 08/11/16 15:26 Consult Discharge Plan - Plan Referrals: Elie Olivares MD [Primary Care Provider] - 08/21/16 1:15 pm
[2016-08-16] MEDS: Lisinopril 20 MG TABLET PO SCH (09:41)
[2016-08-16] MEDS: Venlafaxine XR (24 HR) 75 MG CAP.ER.24H PO SCH (09:42)
[2016-08-16] MEDS: Multivit/Ca/Min/Fe/FA 1 TAB TABLET PO SCH (09:42)
[2016-08-16] MEDS: Metoprolol XL (24 HR) Succ 50 MG TAB.ER.24H PO SCH (09:42)
[2016-08-16] MEDS: Ertapenem 1,000 MG in 0.9 % Sodium Chloride Mini Bag 100 ML IVPB SCH (09:42)
[2016-08-16] MEDS: Mirtazapine 15 MG TABLET PO SCH (21:52)
[2016-08-17] MEDS: Ertapenem 1,000 MG in 0.9 % Sodium Chloride Mini Bag 100 ML IVPB SCH (08:32)
[2016-08-17] MEDS: Multivit/Ca/Min/Fe/FA 1 TAB TABLET PO SCH (08:33)
[2016-08-17] MEDS: *HR* Heparin 5,000 UNIT/ML VIAL SQ SCH ×2 (08:33→18:16)
[2016-08-17] MEDS: Lisinopril 20 MG TABLET PO SCH (08:33)
[2016-08-17] MEDS: Metoprolol XL (24 HR) Succ 50 MG TAB.ER.24H PO SCH (08:33)
[2016-08-17] MEDS: Venlafaxine XR (24 HR) 75 MG CAP.ER.24H PO SCH (08:33)
--- NOTE | 2016-08-17 17:12 | Internal Med Progress Note ---
Date of Encounter: 08/17/16 Time of Encounter: 08:30 - Assessment and plan (1) UTI (urinary tract infection) Current Visit: Yes Status: Acute Assessment and plan: resolved sepsis; complicated UTI due to BPH. urine culture grows ESBL-E.coli and patient started on IV Ertapenem; continue the same to complete a 14-day course, day 4/14; received an extended peripheral line for IV antibiotics; PT consult recommends SNF placement, business services representative on board, pending placement; medically stable; Qualifiers: Urinary tract infection type: acute cystitis Hematuria presence: without hematuria Qualified Code(s): N30.00 - Acute cystitis without hematuria (2) BPH (benign prostatic hypertrophy) Current Visit: Yes Status: Chronic Qualifiers: Prostatic enlargement morphology: unspecified morphology Lower urinary tract symptom presence: symptoms present Qualified Code(s): N40.1 - Benign prostatic hyperplasia with lower urinary tract symptoms (3) COPD (chronic obstructive pulmonary disease) Current Visit: Yes Status: Chronic Qualifiers: COPD type: unspecified COPD Qualified Code(s): J44.9 - Chronic obstructive pulmonary disease, unspecified (4) HLD (hyperlipidemia) Current Visit: Yes Status: Chronic Qualifiers: Hyperlipidemia type: unspecified Qualified Code(s): E78.5 - Hyperlipidemia , unspecified (5) Sepsis Current Visit: Yes Status: Resolved Qualifiers: Sepsis type: Escherichia coli Qualified Code(s): A41.51 - Sepsis due to Escherichia coli [E. coli] (6) CKD (chronic kidney disease) stage 3, GFR 30-59 ml/min Current Visit: Yes Status: Chronic (7) HTN (hypertension) Current Visit: Yes Status: Chronic Qualifiers: Hypertension type: essential hypertension Qualified Code(s): I10 - Essential (primary) hypertension - Subjective Interval history: Noted to be sitting up in bed, eating breakfast. Noted to have good appetite. Able to tell me his name but otherwise answers inappropriately and talks randomly. Noted to have stuttered speech. No reported fever, vomiting, diarrhea, pain. - Constitutional Vitals: Temp Pulse Resp BP Pulse Ox 97.9 F 84 12 172/92 95 08/17/16 16:51 08/17/16 16:51 08/17/16 16:51 08/17/16 16:51 08/17/16 16:51 General appearance: Present: A&O X 1 - Respiratory Respiratory exam: Present: CTAB. Absent: accessory muscle use, rales, rhonchi, wheezes - Cardiovascular Cardiovascular exam: Present: RRR, +S1, +S2. Absent: diastolic murmur, gallop, rubs, systolic murmur Internal Medicine: Result - Labs CBC & Chem 7: 08/14/16 10:48 08/14/16 10:48 - ABG Interpretation ABG results: PT/INR, D-dimer PT 14.4 Seconds (9.4-12.1) H 08/11/16 15:26 Consult Discharge Plan - Plan Referrals: Elie Olivares MD [Primary Care Provider] - 08/21/16 1:15 pm
[2016-08-17] MEDS: Mirtazapine 15 MG TABLET PO SCH (22:31)
[2016-08-18] MEDS: *HR* Heparin 5,000 UNIT/ML VIAL SQ SCH (06:30)
--- NOTE | 2016-08-18 08:11 | Internal Med Progress Note ---
Date of Encounter: 08/18/16 Time of Encounter: 08:09 - Assessment and plan (1) UTI (urinary tract infection) Current Visit: Yes Status: Acute Assessment and plan: complicated UTI due to BPH. urine culture grows ESBL-E.coli and patient started on IV Ertapenem; continue the same to complete a 14-day course, day 514 ; received an extended peripheral line for IV antibiotics, which he pulled out last night. Will need a new line prior to discharge; PT consult recommends SNF placement, fire services plumber on board, pending placement; difficulty placing him due to mental status, mood disorder and combative behavior due to TBI, per ; medically stable; Qualifiers: Urinary tract infection type: acute cystitis Hematuria presence: without hematuria Qualified Code(s): N30.00 - Acute cystitis without hematuria (2) BPH (benign prostatic hypertrophy) Current Visit: Yes Status: Chronic Assessment and plan: Continue home meds. Wears diaper due to urinary incontinence. Qualifiers: Prostatic enlargement morphology: unspecified morphology Lower urinary tract symptom presence: symptoms present Qualified Code(s): N40.1 - Benign prostatic hyperplasia with lower urinary tract symptoms (3) COPD (chronic obstructive pulmonary disease) Current Visit: Yes Status: Chronic Assessment and plan: not noted to be in acute exacerbation; continue PRN bronchodilators and supplemental O2; Qualifiers: COPD type: unspecified COPD Qualified Code(s): J44.9 - Chronic obstructive pulmonary disease, unspecified (4) HLD (hyperlipidemia) Current Visit: Yes Status: Chronic Qualifiers: Hyperlipidemia type: unspecified Qualified Code(s): E78.5 - Hyperlipidemia , unspecified (5) Sepsis Current Visit: Yes Status: Resolved Qualifiers: Sepsis type: Escherichia coli Qualified Code(s): A41.51 - Sepsis due to Escherichia coli [E. coli] (6) CKD (chronic kidney disease) stage 3, GFR 30-59 ml/min Current Visit: Yes Status: Chronic (7) HTN (hypertension) Current Visit: Yes Status: Chronic Qualifiers: Hypertension type: essential hypertension Qualified Code(s): I10 - Essential (primary) hypertension - Subjective Interval history: Appears relatively dull and in low spirits today; noted to have pulled out his extended IV line overnight due to confusion; mental status otherwise is at baseline, able to state his name and if he had breakfast and otherwise inappropriate mumbling; - Constitutional Vitals: Temp Pulse Resp BP Pulse Ox 98.0 F 79 17 141/87 96 08/18/16 07:55 08/18/16 07:55 08/18/16 07:55 08/18/16 07:55 08/18/16 07:55 General appearance: Present: A&O X 1 - Respiratory Respiratory exam: Present: CTAB. Absent: accessory muscle use, rales, rhonchi, wheezes - Cardiovascular Cardiovascular exam: Present: RRR, +S1, +S2. Absent: diastolic murmur, gallop, rubs, systolic murmur - GI/Abdominal GI/Abdominal exam: Present: normal bowel sounds, soft, no peritoneal signs. Absent: distended, tenderness Internal Medicine: Result - Labs CBC & Chem 7: 08/14/16 10:48 08/14/16 10:48 - ABG Interpretation ABG results: PT/INR, D-dimer PT 14.4 Seconds (9.4-12.1) H 08/11/16 15:26 Consult Discharge Plan - Plan Referrals: Elie Olivares MD [Primary Care Provider] - 08/21/16 1:15 pm
[2016-08-18] MEDS: Venlafaxine XR (24 HR) 75 MG CAP.ER.24H PO SCH (08:41)
[2016-08-18] MEDS: Ertapenem 1,000 MG in 0.9 % Sodium Chloride Mini Bag 100 ML IVPB SCH (08:41)
[2016-08-18] MEDS: Lisinopril 20 MG TABLET PO SCH (08:43)
[2016-08-18] MEDS: Metoprolol XL (24 HR) Succ 50 MG TAB.ER.24H PO SCH (08:43)
[2016-08-18] MEDS: Multivit/Ca/Min/Fe/FA 1 TAB TABLET PO SCH (08:43)
--- NOTE | 2016-08-18 16:18 | Discharge Summary ---
Date of Encounter: 08/18/16 Time of Encounter: 16:15 - Discharge Diagnosis (1) UTI (urinary tract infection) Priority: Primary Status: Acute Qualifiers: Urinary tract infection type: acute cystitis Hematuria presence: without hematuria Qualified Code(s): N30.00 - Acute cystitis without hematuria (2) BPH (benign prostatic hypertrophy) Priority: Secondary Status: Chronic Qualifiers: Prostatic enlargement morphology: unspecified morphology Lower urinary tract symptom presence: symptoms present Qualified Code(s): N40.1 - Benign prostatic hyperplasia with lower urinary tract symptoms (3) COPD (chronic obstructive pulmonary disease) Priority: Secondary Status: Chronic Qualifiers: COPD type: unspecified COPD Qualified Code(s): J44.9 - Chronic obstructive pulmonary disease, unspecified (4) HLD (hyperlipidemia) Priority: Secondary Status: Chronic Qualifiers: Hyperlipidemia type: unspecified Qualified Code(s): E78.5 - Hyperlipidemia , unspecified (5) Sepsis Priority: Primary Status: Resolved Qualifiers: Sepsis type: Escherichia coli Qualified Code(s): A41.51 - Sepsis due to Escherichia coli [E. coli] (6) CKD (chronic kidney disease) stage 3, GFR 30-59 ml/min Priority: Secondary Status: Chronic (7) HTN (hypertension) Priority: Secondary Status: Chronic Qualifiers: Hypertension type: essential hypertension Qualified Code(s): I10 - Essential (primary) hypertension - Discharge Medications Prescriptions: Ertapenem [INVanz] 1,000 mg IM DAILY 9 Days Home Medications: Clopidogrel [Plavix] 75 mg PO DAILY 05/31/16 [History] Lisinopril [Zestril] 40 mg PO DAILY 05/31/16 [History] Metoprolol XL (24 HR) Succ [Toprol Xl] 50 mg PO DAILY 05/31/16 [History] Simvastatin [Zocor] 20 mg PO HS 05/31/16 [History] Terazosin [Hytrin] 1 mg PO HS 05/31/16 [History] Venlafaxine XR (24 HR) [Effexor XR] 75 mg PO DAILY 05/31/16 [History] Docusate [Colace] 100 mg PO BID PRN #30 capsule 06/02/16 [Rx] Mirtazapine [Remeron] 15 mg PO HS 08/11/16 [History] Multivitamin [Multi-Day Vitamins] 1 each PO DAILY 08/11/16 [History] Ertapenem [INVanz] 1,000 mg IM DAILY 9 Days 08/18/16 [Rx] Allergies/Adverse Reactions: Allergies No Known Allergies Allergy (Verified 05/30/16 23:20) Date of admission: 08/16/16 16:41 Primary care physician: Elie Olivares MD Discharging clinician: Rita Alcantara Anticipated date of discharge: 08/18/16 - Patient Status Disposition: Transfer SNF Condition: Fair Functional capacity at discharge: uses cane/walker Overall status at discharge: patient is progressing back to baseline - Discharge Instructions Follow Up With: Elie Olivares MD [Primary Care Provider] - 08/23/16 9:45 am - Diet and Activity Activity: as per physical therapy Diet: low fat, low cholesterol, low salt diet Hospital course: Mr. Akhtar is a 70 year old male with the above medical problems who was initially admitted due to acute on chronic confusion and generalized weakness. He was noted to have sepsis secondary to UTI and possible pyelonephritis. He was started on IV hydration and IV antibiotics and his clinical condition gradually improved. Blood cultures remained negative but urine culture grew ESBL positive Escherichia coli for which he was started on IV ertapenem, to which he responded well. He remained hemodynamically stable and asymptomatic during his hospitalization. He had a prolonged hospitalization due to issues with placement. Physical therapy evaluation was done and recommended placement in an extended care facility for continued rehabilitation. Patient has history of traumatic brain injury and has resultant underlying dementia, stuttered speech, mood disorder with occasional combat her behavior. He initially required benzodiazepines and Haldol to calm him down but gradually improved. He did not receive any sedatives or anxiolytics during the time I have taken care of him. He is currently medically stable for discharge to half-way. He removed his IV line and so will be discharged on intramuscular ertapenem to complete his antibiotic course. - Time Spent with Patient Total time spent providing and/or coordinating discharge services: Greater than 30 minutes (45 min) - Constitutional Vitals: Temp Pulse Resp BP Pulse Ox 97.8 F 81 17 148/88 97 08/18/16 10:52 08/18/16 10:52 08/18/16 10:52 08/18/16 10:52 08/18/16 10:52 General appearance: Present: A&O X 1 - Respiratory Respiratory exam: Present: CTAB. Absent: accessory muscle use, rales, rhonchi, wheezes - Cardiovascular Cardiovascular exam: Present: RRR, +S1, +S2. Absent: diastolic murmur, gallop, rubs, systolic murmur
--- NOTE | 2016-08-18 16:20 | Physician Discharge Referral ---
ExtendedCare Referral Info Transfer To: [facility] Provider in Charge: Rita Alcantara Provider in Charge after Transfer: PCP Institutional Level of Care: Skilled - Diagnosis (1) UTI (urinary tract infection) Priority: Primary Status: Acute (2) BPH (benign prostatic hypertrophy) Priority: Secondary Status: Chronic (3) COPD (chronic obstructive pulmonary disease) Priority: Secondary Status: Chronic (4) HLD (hyperlipidemia) Priority: Secondary Status: Chronic (5) Sepsis Priority: Primary Status: Resolved (6) CKD (chronic kidney disease) stage 3, GFR 30-59 ml/min Priority: Secondary Status: Chronic (7) HTN (hypertension) Priority: Secondary Status: Chronic Expected Duration of Placement: 4 weeks Prognosis: Fair Aware of Diagnosis: Family Aware of Prognosis: Family - Transfer Medications Prescriptions: Ertapenem [INVanz] 1,000 mg IM DAILY 9 Days Home Medications: Clopidogrel [Plavix] 75 mg PO DAILY 05/31/16 [History] Lisinopril [Zestril] 40 mg PO DAILY 05/31/16 [History] Metoprolol XL (24 HR) Succ [Toprol Xl] 50 mg PO DAILY 05/31/16 [History] Simvastatin [Zocor] 20 mg PO HS 05/31/16 [History] Terazosin [Hytrin] 1 mg PO HS 05/31/16 [History] Venlafaxine XR (24 HR) [Effexor XR] 75 mg PO DAILY 05/31/16 [History] Docusate [Colace] 100 mg PO BID PRN #30 capsule 06/02/16 [Rx] Mirtazapine [Remeron] 15 mg PO HS 08/11/16 [History] Multivitamin [Multi-Day Vitamins] 1 each PO DAILY 08/11/16 [History] Ertapenem [INVanz] 1,000 mg IM DAILY 9 Days 08/18/16 [Rx] Allergies/Adverse Reactions: Allergies No Known Allergies Allergy (Verified 05/30/16 23:20) - Respiratory Orders Smoking Cessation: Smoking cessation has been advised. For more information, call the [place] Tobacco Quit Line at 5-666-MONQ-NOW. - Ancillary Orders May use pressure relief devices daily prn - Advance Directives Power of Card Brusher: Yes () Code Status: Full Code - Mobility Orders Ambulate - Rehabiliation Orders Rehab Potential: Fair Rehab Orders: ROM Exercises, Evaluation for Physical Therapy, Evaluation for Occupational Therapy - Diet Orders No Added Salt (ROHIT), Renal, Cardiac CERTIFICATION: I certify that the transfer of the above named patient to an Extended Care Facility is necessary for the continuing treatment of the diagnosis listed. The above information is true and accurate reflection of patient's current condition. Confidential - Redisclosure prohibited without a patient's written consent.
[2016-08-18 16:57] VITALS: BP 97/67
== END 2016-08-18 18:00 | DRG 872 ==
LOC: EMEROO 13:48 → 3ANU 13:48 → SUATTDRO 17:06 → 3ANU 18:04
PROVIDERS: ADMIT Family Medicine; ATTEND Internal Medicine

== ENCOUNTER 2017-08-25 16:16 | Inpatient (IN) ==
[2017-08-25] MEDS ORDERED: Cefepime HCl 2,000 MG in Water for inj. (sterile) 20 ML 20 ML IVPB ONE (17:04)
--- NOTE | 2017-08-25 17:17 | Emergency Department Note ---
START Narrative - START START: I examined this patient and my medical decision-making was reviewed with the Resident Physician. I agree with the documented findings, disposition and treatment plan as described except to the extent set forth below. 71-year-old male presents to the ER from the nursing facility for concerns for pneumonia and weakness. X-ray reveals possible left lower lobe infiltrate. He has had increased coughing and weakness. We will treat him for healthcare acquired pneumonia with cefepime and vancomycin. Patient will need to be admitted for IV fluids and IV antibiotics. Most of the history is obtained from his . he has been hypoxic; give supplemental O2 blood cultures
[2017-08-25 17:23] LABS: Basophils % 0.1 %; Eosinophils % 0.2 %; Hematocrit 39.6 % (37.5-50.1); Hemoglobin 12.5 g/dL (12.9-16.9); Immature Granulocytes % 0.5 % (0-4); Lymphocytes # 0.5 K/mcL (0.6-4.6); Lymphocytes % 4.7 %; Mean Corpuscular HGB Conc 31.6 g/dL (31.6-35.5); Mean Corpuscular Hemoglobin 28.7 pg (28.0-33.3); Mean Corpuscular Volume 90.8 fL (83.0-100.0); Mean Platelet Volume 9.2 fL (9.4-12.4); Monocytes # 0.8 K/mcL (0.0-1.3); Monocytes % 7.4 %; Neutrophils # 8.9 K/mcL (1.6-8.9); Platelet Count 228 K/mcL (140-400); Red Blood Count 4.36 M/mcL (4.19-5.50); Red Cell Distribution Width 13.1 % (11.5-14.5); Segmented Neutrophils % 87.1 %
--- NOTE | 2017-08-25 17:31 | Emergency Department Note ---
Disposition Clinical Impression: Pneumonia Qualifiers: Pneumonia type: due to unspecified organism Laterality: left Lung location: lower lobe of lung Qualified Code(s): J18.1 - Lobar pneumonia, unspecified organism Disposition: Admitted As Inpatient Condition: Fair Referrals: NONE,PCP [Primary Care Provider] - Forms: ED Satisfaction Letter Time of Disposition: 18:40 General Adult HPI - General Chief complaint: ED Shortness of Breath/Dyspnea Stated complaint: ROBBI Time Seen by Provider: 08/25/17 16:19 Source: EMS Mode of arrival: EMS Limitations: altered mental status Nursing Notes Reviewed: Yes Vital Signs Reviewed: Yes - History of Present Illness HPI Narrative: 71-year-old male with impairment, mostly nonverbal sent for increase work of breathing and pneumonia. Patient had x-ray completed yesterday at [facility] that showed possible multifocal pneumonia. Ancef was started. Today patient required increase in his oxygen from 2 L to 4 L nasal cannula. Concerned because at [facility] patient's oxygen saturation was in the mid to upper 80s. Patient was also febrile. Pain Scale: 0 - Related Data Home Medications Medication Instructions Recorded Confirmed Clopidogrel [Plavix] 75 mg PO DAILY 05/31/16 08/25/17 Lisinopril [Zestril] 40 mg PO DAILY 05/31/16 08/25/17 Metoprolol XL (24 HR) Succ [Toprol 50 mg PO DAILY 05/31/16 08/25/17 Xl] Simvastatin [Zocor] 20 mg PO HS 05/31/16 08/25/17 Terazosin [Hytrin] 1 mg PO HS 05/31/16 08/25/17 Venlafaxine XR (24 HR) [Effexor XR] 75 mg PO DAILY 05/31/16 08/25/17 Multivitamin [Multi-Day Vitamins] 1 each PO DAILY 08/11/16 08/25/17 Acetaminophen [Tylenol] 650 mg PO Q8H PRN 07/02/17 08/25/17 risperiDONE [RisperDAL] 0.25 mg PO BID 07/02/17 08/25/17 LORazepam [Ativan] 0.5 mg PO ONCE PRN 08/25/17 08/25/17 LORazepam [Ativan] 1 mg PO HS 08/25/17 08/25/17 Previous Rx's Medication Instructions Recorded Docusate [Colace] 100 mg PO BID PRN #30 capsule 06/02/16 Allergies Allergy/AdvReac Type Severity Reaction Status Date / Time No Known Allergies Allergy Verified 05/30/16 23:20 Limitations: ROS unobtainable due to patients medical condition Past Medical History - Past Medical History Source: old records reviewed Medical history: Reports: COPD, CVA, dementia, hyperlipidemia, hypertension, renal disease, other Psychiatric history: Reports: no psych history - Social History Smoking Status: Former smoker Smokeless Tobacco Status: No Alcohol use: Reports: none Drug use: Reports: none Physical Exam - General Limitations: altered mental status General appearance: alert, in no apparent distress - Head Head exam: atraumatic, normocephalic, normal inspection - Eye Eye exam: Present: normal appearance. Absent: scleral icterus, conjunctival injection - Neck Neck exam: Present: normal inspection - Chest Chest inspection: Present: normal inspection, symmetric chest wall rise. Absent : tenderness, rash - Respiratory Respiratory exam: Present: other (Diffuse rhonchi noted.) - Cardiovascular Cardiovascular exam: Present: regular rate, normal rhythm - Abdominal Exam Abdominal exam: Present: soft, Non-Tender. Absent: distention, guarding, rebound - Extremities Exam Extremities exam: Present: normal capillary refill. Absent: tenderness - Skin Skin exam: Present: dry, intact Course Course Narrative: 71-year-old male sent from assisted living facility for pneumonia and increased work of breathing with hypoxia. Patient on 4 L nasal cannula with stable vital signs at this time. Patient responds to painful stimuli but is otherwise nonverbal. at bedside. States mental status is baseline for patient due to previous brain injury. We will perform sepsis workup including chest x-ray, CBC, lactic acid, blood cultures and BNP. We will plan to admit the patient for healthcare acquired pneumonia. We will start the patient on vancomycin and cefepime as well. Patient stable at this time. at bedside and agrees with plan. - Reevaluation(s) Reevaluation #1: Labs grossly unchanged. Chest x-ray shows left lower lobe pneumonia. Then the patient was sent for healthcare acquired pneumonia at this time. I spoke with the hospitalist on-call Dr. Ellsworth who agrees to accept the patient at this time. Patient has been stable throughout his stay. Vital signs stable at time of admission. Vital Signs Temperature 98.5 F 02/24/18 16:17 Pulse Rate 80 08/25/17 16:17 Respiratory Rate 20 08/25/17 16:17 Blood Pressure 161/89 08/25/17 16:17 O2 Sat by Pulse Oximetry 98 08/25/17 16:17 Temperature 98.5 F 08/25/17 16:17 Pulse Rate 81 08/25/17 17:34 Respiratory Rate 20 08/25/17 17:34 Blood Pressure 151/77 08/25/17 17:09 O2 Sat by Pulse Oximetry 99 08/25/17 17:34 Oxygen Delivery Oxygen Delivery Nasal Cannula Medical Decision Making - Lab Data Result diagrams: 08/25/17 16:32 08/25/17 16:32 Lab Results 08/25/17 08/25/17 08/25/17 Range/Units 16:32 16:32 16:32 WBC 10.2 (4.3-11.1) K/mcL RBC 4.36 (4.19-5.50) M/mcL Hgb 12.5 L (12.9-16.9) g/dL Hct 39.6 (37.5-50.1) % MCV 90.8 (83.0-100.0) fL MCH 28.7 (28.0-33.3) pg MCHC 31.6 (31.6-35.5) g/dL RDW 13.1 (11.5-14.5) % Plt Count 228 (140-400) K/mcL MPV 9.2 L (9.4-12.4) fL Immature Gran % 0.5 (0-4) % Seg Neutrophils % 87.1 % Lymphocytes % 4.7 % Monocytes % 7.4 % Eosinophils % 0.2 % Basophils % 0.1 % Neutrophils # 8.9 (1.6-8.9) K/mcL Lymphocytes # 0.5 L (0.6-4.6) K/mcL Monocytes # 0.8 (0.0-1.3) K/mcL Eosinophils # 0.0 (0.0-0.6) K/mcL Basophils # 0.0 (0.0-0.2) K/mcL Sodium 132 L (136-145) mEq/L Potassium 4.5 (3.5-5.1) mEq/L Chloride 96 L (98-107) mEq/L Carbon Dioxide 27 (23-29) mEq/L BUN 20 (8-23) mg/dL Creatinine 1.20 (0.70-1.30) mg/dL Est GFR ( Amer) > 60 (> 60) Est GFR (Non-Af Amer) 60 (> 60) BUN/Creatinine Ratio 17 (6-26) Glucose 144 H (70-105) mg/dL Calculated Osmolality 279 L (280-300) Calcium 9.7 (8.6-10.3) mg/dL Troponin I < 0.03 (< 0.04) ng/mL - EKG Data EKG #1 EKG attestation: Yes I reviewed and interpreted this EKG. EKG results narrative: Sinus rhythm with sinus arrhythmia. A beats per minute. AR interval 187, QRS 93, QTc 380. No signs of acute ST segment elevation or ischemia. Compared to previous EKG completed on 08/11/2017 no significant changes noted
[2017-08-25 17:43] LABS: BUN/Creatinine Ratio 17 (6-26); Blood Urea Nitrogen 20 mg/dL (8-23); Calcium 9.7 mg/dL (8.6-10.3); Carbon Dioxide 27 mEq/L (23-29); Chloride 96 mEq/L (98-107); Glucose 144 mg/dL (70-105); Osmolality,Calculated 279 (280-300); Potassium 4.5 mEq/L (3.5-5.1); Sodium 132 mEq/L (136-145); eGFR For Non-African Americans 60 (> 60)
--- NOTE | 2017-08-25 19:01 | Internal Med History&Physical ---
Date of Encounter: 08/27/17 Time of Encounter: 19:00 Assessment and Plan (1) Acute respiratory failure with hypoxia Current visit: Yes Status: Acute Likely due to HCAP. Rest of plan as below. (2) HCAP (healthcare-associated pneumonia) Current visit: Yes Status: Acute Start patient on vancomycin and Zosyn. Scheduled nebs. Follow up on blood cultures. Check sputum cultures. Check lactic acid. Check urine strep and Legionella. check resp panel. O2 support and wean down as tolerated. Gentle hydration. (3) History of CVA (cerebrovascular accident) Current visit: No Status: Acute Resume Plavix and statin. (4) CKD (chronic kidney disease) stage 3, GFR 30-59 ml/min Current visit: No Status: Chronic We will continue to monitor. The patient is around baseline. (5) HTN (hypertension) Current visit: No Status: Chronic Resume home antihypertensives. Qualifiers: Hypertension type: essential hypertension Qualified Code(s): I10 - Essential (primary) hypertension (6) COPD (chronic obstructive pulmonary disease) Current visit: No Status: Chronic Not in exacerbation. We will continue to monitor. Qualifiers: COPD type: COPD with acute exacerbation Qualified Code(s): J44.1 - Chronic obstructive pulmonary disease with (acute) exacerbation (7) DVT prophylaxis Current visit: No Status: Acute Heparin subcutaneous Internal Medicine - H&P: HPI Chief complaint: shortness of breath Admitted From: Emergency Dept Plans for Post Hospital Care: Transfer Senior Living Facility History of present illness: Mr. Akhtar is a 71 year old male with PMH of COPD on 2 L O2 chronically, CKD3, HTN, previous CVA with residual aphasia, depression, who is sent for increase work of breathing,, cough, and pneumonia from nursing facility. Patient is at baseline has aphasia and from what I understand is barely verbal. There is reportedly fever, although I do not know how high. He is afebrile here. A CXR done there yesterday showed multifocal pneumonia and was started on Ancef. Sats were in the 80s today and was sent here after increasing O2 to 4L. Imaging studies here showed left lower lobe infiltrate. Hemodynamically stable on 4 L O2. Labs unremarkable. No leukocytosis. Na mildly low at 132. No reported headache, blurry vsion, nausea/vomiting, chest pain, abdominal pain, constipation, diarrhea, urinary symptoms, or new neurological complaints. Given vancomycin and cefepime in the ED. Patient is being admitted for acute hypoxia. Past Med Surg Social Fam HX - Past Medical History Medical history: COPD, CVA, dementia, hyperlipidemia, hypertension, renal disease, other Psychiatric history: no psych history - Social History Smoking Status: Former smoker Smokeless Tobacco Status: No Alcohol use: none Drug use: none - Family History Mother Living Status: Hx Family Cancer: Yes (lung) Father Living Status: Hx Family Cardiac Disorders: Yes ([place]) Sister Living Status: Hx Family Cancer: Yes (lung) Brother Living Status: Hx Family Cancer: Yes (lung) Internal Medicine - H&P: Meds Clopidogrel [Plavix] 75 mg PO DAILY 05/31/16 [History] Lisinopril [Zestril] 40 mg PO DAILY 05/31/16 [History] Metoprolol XL (24 HR) Succ [Toprol Xl] 50 mg PO DAILY 05/31/16 [History] Simvastatin [Zocor] 20 mg PO HS 05/31/16 [History] Terazosin [Hytrin] 1 mg PO HS 05/31/16 [History] Venlafaxine XR (24 HR) [Effexor XR] 75 mg PO DAILY 05/31/16 [History] Docusate [Colace] 100 mg PO BID PRN #30 capsule 06/02/16 [Rx] Multivitamin [Multi-Day Vitamins] 1 each PO DAILY 08/11/16 [History] Acetaminophen [Tylenol] 650 mg PO Q8H PRN 07/02/17 [History] risperiDONE [RisperDAL] 0.25 mg PO BID 07/02/17 [History] LORazepam [Ativan] 0.5 mg PO ONCE PRN 08/25/17 [History] LORazepam [Ativan] 1 mg PO HS 08/25/17 [History] 3 Allergy/AdvReac Type Severity Reaction Status Date / Time No Known Allergies Allergy Verified 05/30/16 23:20 All Systems PM: A 10-system review of systems was performed and is negative for pertinent findings except as documented above in the HPI. Review of systems: All systems reviewed are negative except for as mentioned above - Constitutional Vitals: Temp Pulse Resp BP Pulse Ox 98.5 F 79 20 152/80 100 08/25/17 16:17 08/25/17 18:39 08/25/17 18:39 08/25/17 18:39 08/25/17 18:39 Exam: GEN: NAD HEENT: AT, NC, No cyanosis, oral mucosa is moist, No JVD Lymphatics: No lymphadenoapthy Eyes: Extrocular muscles intact, anicteric CVS:RRR. S1, S2, No m/r/g RESP: Diminished with left lower lobe rhonchi posteriorly. scattered crackles. ABD: Soft, NT, ND, +BS EXT: No edema, No rashes, 2+ DP. left shoulder swelling noted. NEURO: Nonfocal, CN II-XII intact, No focal motor or sensory deficits Psych: Cooperative, Not anxious or depressed Internal Med - H&P Results - Labs CBC & Chem 7: 08/27/17 02:51 08/27/17 02:45
[2017-08-25] MEDS ORDERED: Naloxone 0.4 MG/ML INJ IVP PRN (19:03)
[2017-08-25] MEDS ORDERED: Acetaminophen 325 MG TABLET PO PRN (19:03)
[2017-08-25] MEDS ORDERED: 0.9 % Sodium Chloride 1,000 ML IVC SCH (19:15)
[2017-08-25] MEDS ORDERED: Furosemide 40 MG/4 ML VIAL IVP ONE (20:20)
[2017-08-25] MEDS: Ipratropium/Albuterol Neb 3 ML IH SCH (20:24)
--- NOTE | 2017-08-25 20:33 | Event Note ---
Date of Encounter: 08/25/17 Time of Encounter: 20:31 Patient arrives to the floor more tachypneic in the 30s and HR in 90s, temp is around 102, BP is elevated with systolic in 160s. He has crackles now on exam. Will check BNP, ABG, give 40 mg IV Lasix. Stop IVF. May need bipap. No history of CHF in documentation and per . Nursing staff noted left shoulder swelling. I evaluated the patient and he unfortunately cant say much. I spoke to his who tells me it has been there for years and they were told 'it is a torn muscle". Patient is tender when palpated. I dont' see any imaging done on this in our system. It is not mentioned in the CXR done today or any previous CXR. Will check a left shoulder xray for now.
[2017-08-25 20:39] LABS: ABG Base Excess 0 mEq/L (-2 to 3); ABG HCO3 24 mEq/L (21-27); ABG Oxygen Saturation 93 % (95-98); ABG PCO2 38 mmHg (35-45); ABG PH 7.42 pH Units (7.32-7.45); ABG PO2 66 mmHg (85-104); ABG TCO2 25 mEq/L (20-26)
[2017-08-25] MEDS ORDERED: risperiDONE 0.25 MG TABLET PO SCH (21:00)
[2017-08-25] MEDS ORDERED: *HR* LORazepam 1 MG TABLET PO SCH (21:00)
[2017-08-25] MEDS: *HR* Heparin 5,000 UNIT/ML VIAL SQ SCH (21:14)
[2017-08-25] MEDS: Piperacillin/Tazobactam 3.375 GM in 0.9 % Sodium Chloride Mini Bag 100 ML IVPB SCH (23:40)
[2017-08-26] MEDS ORDERED: 0.9 % Sodium Chloride 1,000 ML ONE (00:10)
[2017-08-26] MEDS ORDERED: 0.9 % Sodium Chloride 1,000 ML IVC ONE ×2 (00:12→02:27)
[2017-08-26 00:26] LABS: ABG Base Excess 2 mEq/L (-2 to 3); ABG HCO3 25 mEq/L (21-27); ABG Oxygen Saturation 98 % (95-98); ABG PCO2 36 mmHg (35-45); ABG PH 7.46 pH Units (7.32-7.45); ABG PO2 95 mmHg (85-104); ABG TCO2 26 mEq/L (20-26); Blood Gas Respiration Rate 10
--- NOTE | 2017-08-26 01:28 | Event Note ---
Date of Encounter: 08/26/17 Time of Encounter: 01:16 Called to see patient around midnight for concerns of hypotension, fever, and depressed level of consciousness. I saw patient shortly thereafter. Upon my assessment, patient is unresponsive except to painful, sternal rub. He is tachypneic and exhibiting significant work of breathing. BP was in the 70's systolic. I ordered 1 liter NS bolus. I ordered ABG and STAT CXR. On exam, he had crackles both bases, diffuse rhonchi throughout, and gurgling in his oropharyx. I'm concerned he is aspirating. On CXR tonight, he appears to have a new RLL infiltrate in my opinion -- consistent with aspiration pneumonia. Additionally, he is septic. He responded minimally to NS bolus. ABG was stable other than suuboptimal PO2. Due to his sepsis and respiratory failure we moved him to ICU for ongoing ICU support and probable intubation. He will likely need CVC placement, IVF/Pressors, and possible intubation.
[2017-08-26] MEDS ORDERED: 0.9 % Sodium Chloride 1,000 ML IVC SCH (01:45)
[2017-08-26] MEDS ORDERED: Lidocaine -MPF 2% 5 ML VIAL ONE (02:02)
[2017-08-26 02:17] LABS: Adenovirus Not Detected (Not Detect); Coronavirus 229E Not Detected (Not Detect); Coronavirus HKU1 Not Detected (Not Detect); Coronavirus NL63 Not Detected (Not Detect); Coronavirus OC43 Not Detected (Not Detect); Human Metapneumovirus ***DETECTED*** (Not Detect); Human Rhinovirus/Enterovirus Not Detected (Not Detect)
[2017-08-26 02:18] LABS: Bordetella Pertussis Not Detected (Not Detect); Chlamydophila pneumoniae Not Detected (Not Detect); Influenza A Subtype 2009 H1 Not Detected (Not Detect); Influenza A Untypeable Not Detected (Not Detect); Influenza B Not Detected (Not Detect); Mycoplasma pneumoniae Not Detected (Not Detect); Parainfluenza Virus 1 Not Detected (Not Detect); Parainfluenza Virus 2 Not Detected (Not Detect); Parainfluenza Virus 3 Not Detected (Not Detect); Parainfluenza Virus 4 Not Detected (Not Detect); Respiratory Syncytial Virus Not Detected (Not Detect)
--- NOTE | 2017-08-26 02:39 | Procedure Note ---
<Charli Jeronimo - Last Filed: 08/26/17 02:34> Date of procedure: 08/26/17 Pre-op diagnosis: Hypotension Post-op diagnosis: same Procedure: Procedure Note: Central Venous Catheter Insertion Indication: Hypotension Attending Physician: MD Barbara Prototype Machine Operator: DO Kandace Indication: This is a 71 year-old man with HCAP, CVA, CKD, COPD who became hypotensive refractory to fluids Consent: Detailed explanation of the procedure, treatment options, risks including but not limited to infection and bleeding, and benefits were explained to the patient's over the phone. A verbal informed consent was obtained by Dr. Jeronimo and then witnessed with another consent to Dr. Jimenez. Technique: A time out was preformed identifying the correct procedure, the correct location with the nursing staff. The right groin was prepped with 2% chlorhexidine and draped with a full length sterile sheet in the usual fashion. The femoral vein was accessed with an 18 gauge thin wall needle. A triple lumen was inserted via the seldinger technique. Blood was withdrawn from all lumens and flushed with normal saline. The catheter was sutured in place and a sterile dressing was applied over the site prior to removal of drapes. The patient tolerated the procedure well and there were no complications. EBL: 5mL Complication: None Anesthesia: local Surgeon: Charli Jeronimo Was there an assistant farm operations manager present: Yes Cath Lab Technologist: Russell Jimenez Estimated blood loss (cc): 5 Specimen: n/a Pathology: none sent Condition: critical Disposition: ICU <Russell Jimenez - Last Filed: 08/26/17 03:29> Procedure: I was present, assisted, and supervised entire procedure. Patient tolerated procedure well with minimal blood loss. Patient is septic and will likely need pressors soon. He is receiving his second IVF fluid bolus during procedure.
[2017-08-26 03:45] LABS: ABG Base Excess -1 mEq/L (-2 to 3); ABG HCO3 24 mEq/L (21-27); ABG Oxygen Saturation 94 % (95-98); ABG PCO2 41 mmHg (35-45); ABG PH 7.38 pH Units (7.32-7.45); ABG PO2 74 mmHg (85-104); ABG TCO2 26 mEq/L (20-26); Blood Gas Modality BiLevel; Blood Gas PEEP 8 cm H2O
[2017-08-26 04:06] LABS: Basophils % 0.2 %; Hematocrit 30.2 % (37.5-50.1); Immature Granulocytes % 0.4 % (0-4); Lymphocytes # 0.9 K/mcL (0.6-4.6); Lymphocytes % 7.5 %; Mean Corpuscular HGB Conc 32.1 g/dL (31.6-35.5); Mean Corpuscular Hemoglobin 28.8 pg (28.0-33.3); Mean Corpuscular Volume 89.6 fL (83.0-100.0); Mean Platelet Volume 8.8 fL (9.4-12.4); Monocytes # 1.1 K/mcL (0.0-1.3); Monocytes % 8.8 %; Neutrophils # 10.5 K/mcL (1.6-8.9); Platelet Count 149 K/mcL (140-400); Red Blood Count 3.37 M/mcL (4.19-5.50); Red Cell Distribution Width 13.5 % (11.5-14.5); Segmented Neutrophils % 83.1 %
[2017-08-26 04:07] LABS: Hemoglobin 9.7 g/dL (12.9-16.9)
[2017-08-26 04:24] LABS: Calcium 8.1 mg/dL (8.6-10.3); Magnesium 1.6 mg/dL (1.6-2.6); Potassium 4.2 mEq/L (3.5-5.1)
[2017-08-26] MEDS: Ipratropium/Albuterol Neb 3 ML IH SCH ×4 (05:27→21:52)
[2017-08-26] MEDS: *HR* Heparin 5,000 UNIT/ML VIAL SQ SCH ×3 (05:30→20:10)
[2017-08-26] MEDS ORDERED: Magnesium Sulfate 2 GM in D5% in Water 100 ML IVPB ONE (05:34)
[2017-08-26] MEDS: Piperacillin/Tazobactam 3.375 GM in 0.9 % Sodium Chloride Mini Bag 100 ML IVPB SCH ×3 (07:54→23:27)
[2017-08-26] MEDS ORDERED: Multivit/Ca/Min/Fe/FA 1 TAB TABLET PO SCH (09:00)
[2017-08-26] MEDS ORDERED: Metoprolol XL (24 HR) Succ 50 MG TAB.ER.24H PO SCH (09:00)
[2017-08-26] MEDS ORDERED: Lisinopril 20 MG TABLET PO SCH (09:00)
[2017-08-26] MEDS: Venlafaxine XR (24 HR) 75 MG CAP.ER.24H PO SCH (09:30)
[2017-08-26] MEDS ORDERED: Levofloxacin 750 MG/150 ML 750 MG/150 ML BAG IVPB SCH (10:00)
[2017-08-26] MEDS ORDERED: Haloperidol Lactate 5 MG/ML VIAL IVP PRN (10:21)
--- NOTE | 2017-08-26 13:43 | Pulmonology Consult Note ---
Date of Encounter: 08/26/17 Time of Encounter: 07:00 Assessment and Plan (1) Acute respiratory failure with hypoxia Current Visit: Yes Status: Acute Secondary to suspected gram negative and gram positive pneumonia in the back ground of COPD , BIPAP prn during the day but to put on during the night (2) HCAP (healthcare-associated pneumonia) Current Visit: Yes Status: Acute Patient has metapneumovirus infection with CXR bilateral lower lung zone infiltrates this can be due to Viral pneumonia with secondary suspected gram positive and gram negative pneumonia will continue Vanc and Cefepime in the background of CVA patient might be aspirating patient will need formal speech evaluation before we can start on a diet . (3) Acute exacerbation of chronic obstructive airways disease Current Visit: No Status: Acute Patient has slight increased O2 requirements from baseline will cover with Bronchodilators and steroids . Patient will need deep suctioning probably through his nose . (4) Mhzci-[id number] kidney injury Current Visit: No Status: Acute To continue to monitor Qualifiers: Chronic kidney disease stage: stage 3 (moderate) Qualified Code(s): N17.9 - Acute kidney failure, unspecified; N18.3 - Chronic kidney disease, stage 3 ( moderate); N18.3 - Chronic kidney disease, stage 3 (moderate) (5) Altered mental status Current Visit: Yes Status: Acute Baseline patient has prior history of CVA in the floor he received BZD looks like that is the cause as now patient is opening his eyes follows simple basic commands Qualifiers: Altered mental status type: somnolence Qualified Code(s): R40.0 - Somnolence History of Present Illness Consult date: 08/26/17 Requesting physician: Russell Jimenez Reason for consult: hypoxemia, other (altered mental status ) Chief complaint: Shortness of breadth History of present illness: 71 year old male with past medical history significant for CVA with residual aphasia , COPD on 2 litres , HTN , comes with increased shortness of breadth and increased O2 requirements developed acute decompensation in the general medical floor with worsening hypoxic respiratory failure since he might need intubation patient was transferred to the ICU , patient has aphasia at baseline , hard to get history in the floor he received ativan , restoril developed altered mental status after he came to the ICU he was put on BIPAP and central line was placed he did well overnight on BIPAP he never required vasopressors , the respiratory infection panel showed metapneumovirus infection . Pulmonary was consulted for hypoxic respiratory failure needing NIV . Past Med Surg Social Fam HX - Past Medical History Medical history: COPD, CVA, dementia, hyperlipidemia, hypertension, renal disease, other Psychiatric history: no psych history - Social History Smoking Status: Former smoker Smokeless Tobacco Status: No Alcohol use: none Drug use: none - Family History Mother Living Status: Hx Family Cancer: Yes (lung) Father Living Status: Hx Family Cardiac Disorders: Yes ([place]) Sister Living Status: Hx Family Cancer: Yes (lung) Brother Living Status: Hx Family Cancer: Yes (lung) Medications and Allergies Clopidogrel [Plavix] 75 mg PO DAILY 05/31/16 [History] Lisinopril [Zestril] 40 mg PO DAILY 05/31/16 [History] Metoprolol XL (24 HR) Succ [Toprol Xl] 50 mg PO DAILY 05/31/16 [History] Simvastatin [Zocor] 20 mg PO HS 05/31/16 [History] Terazosin [Hytrin] 1 mg PO HS 05/31/16 [History] Venlafaxine XR (24 HR) [Effexor XR] 75 mg PO DAILY 05/31/16 [History] Docusate [Colace] 100 mg PO BID PRN #30 capsule 06/02/16 [Rx] Multivitamin [Multi-Day Vitamins] 1 each PO DAILY 08/11/16 [History] Acetaminophen [Tylenol] 650 mg PO Q8H PRN 07/02/17 [History] risperiDONE [RisperDAL] 0.25 mg PO BID 07/02/17 [History] LORazepam [Ativan] 0.5 mg PO ONCE PRN 08/25/17 [History] LORazepam [Ativan] 1 mg PO HS 08/25/17 [History] 3 Allergy/AdvReac Type Severity Reaction Status Date / Time No Known Allergies Allergy Verified 05/30/16 23:20 All Systems: Review of systems cannot reviewed because of the baseline aphasia Physical Examination Vital Signs: Vital Signs, Last 4 Hours Temp Pulse Resp BP Pulse Ox 08/26/17 13:00 68 14 102/59 97 08/26/17 11:59 99.0 F 67 12 97/55 96 08/26/17 11:00 70 12 106/56 99 02/25/18 10:00 67 13 107/60 99 Auscultation: bilateral: rales (scattered rales ), other (rales due to upper airway secretions ) Musculoskeletal: other (chronic deformity due to CVA ) pupils equal and round, unable to assess due to mental status, other (Residual neurological deficit ) Results - Laboratory Findings CBC and BMP: 08/26/17 03:57 08/26/17 03:57 ABG ABG pH 7.38 pH Units (7.32-7.45) 08/26/17 03:41 ABG pCO2 41 mmHg (35-45) 08/26/17 03:41 ABG pO2 74 mmHg (85-104) L 08/26/17 03:41 ABG O2 Saturation 94 % (95-98) L 08/26/17 03:41 Abnormal lab findings: Abnormal lab results WBC 12.6 K/mcL (4.3-11.1) H 08/26/17 03:57 RBC 3.37 M/mcL (4.19-5.50) L 08/26/17 03:57 Hgb 9.7 g/dL (12.9-16.9) L D 08/26/17 03:57 Hct 30.2 % (37.5-50.1) L 08/26/17 03:57 MPV 8.8 fL (9.4-12.4) L 08/26/17 03:57 Neutrophils # 10.5 K/mcL (1.6-8.9) H 08/26/17 03:57 ABG pO2 74 mmHg (85-104) L 08/26/17 03:41 ABG O2 Saturation 94 % (95-98) L 08/26/17 03:41 Sodium 134 mEq/L (136-145) L 08/26/17 03:57 Creatinine 1.57 mg/dL (0.70-1.30) H 08/26/17 03:57 Est GFR ( Amer) 53 (> 60) L 08/26/17 03:57 Est GFR (Non-Af Amer) 44 (> 60) L 08/26/17 03:57 Glucose 144 mg/dL (70-105) H 08/26/17 03:57 POC Glucose 128 (58-89) H 08/26/17 01:08 Calcium 8.1 mg/dL (8.6-10.3) L 08/26/17 03:57 B-Natriuretic Peptide 138 pg/mL (Less than 100) H 08/25/17 16:32 Human Metapneumovir PCR DETECTED (Not Detect) A 08/26/17 01:23 - Microbiology Findings Microbiology Findings: Microbiology, Last 48 Hours 08/26/17 00:50 Legionella Antigen - Final Urine,Clean Catch Streptococcus pneumoniae Antigen (M - Final - Clinical Findings Intake & Output: Intake & Output 08/25/17 08/26/17 08/26/17 23:59 07:59 15:59 Intake Total 2040 / 2040 300 / 300 Output Total 250 / 250 500 / 500 Balance 1790 / 1790 -200 / -200 Consult Discharge Plan - Plan Referrals: NONE,PCP [Primary Care Provider] -
[2017-08-26] MEDS: MetroNIDAZOLE 500 MG/100 ML 500 MG/100 ML BAG IVPB SCH ×2 (15:24→23:27)
[2017-08-26] MEDS: MethylPREDNISolone 40 MG/ML VIAL IVP SCH ×2 (15:34→23:27)
[2017-08-27 03:04] LABS: Hematocrit 28.5 % (37.5-50.1); Hemoglobin 9.1 g/dL (12.9-16.9); Mean Corpuscular HGB Conc 31.9 g/dL (31.6-35.5); Mean Corpuscular Hemoglobin 28.9 pg (28.0-33.3); Mean Corpuscular Volume 90.5 fL (83.0-100.0); Mean Platelet Volume 9.3 fL (9.4-12.4); Platelet Count 157 K/mcL (140-400); Red Blood Count 3.15 M/mcL (4.19-5.50); Red Cell Distribution Width 13.5 % (11.5-14.5)
[2017-08-27 03:32] LABS: Calcium 8.3 mg/dL (8.6-10.3); Potassium 3.8 mEq/L (3.5-5.1)
[2017-08-27] MEDS: Ipratropium/Albuterol Neb 3 ML IH SCH ×5 (03:42→20:59)
[2017-08-27] MEDS: *HR* Heparin 5,000 UNIT/ML VIAL SQ SCH ×3 (05:52→21:12)
[2017-08-27] MEDS: MetroNIDAZOLE 500 MG/100 ML 500 MG/100 ML BAG IVPB SCH (08:04)
[2017-08-27] MEDS: MethylPREDNISolone 40 MG/ML VIAL IVP SCH ×2 (08:05→16:47)
[2017-08-27] MEDS: Venlafaxine XR (24 HR) 75 MG CAP.ER.24H PO SCH (08:05)
[2017-08-27] MEDS: Piperacillin/Tazobactam 3.375 GM in 0.9 % Sodium Chloride Mini Bag 100 ML IVPB SCH (08:05)
[2017-08-27] MEDS ORDERED: Aminoglycoside Consult 1 EACH MC ONE (08:17)
--- NOTE | 2017-08-27 10:14 | Internal Med Progress Note ---
Date of Encounter: 08/27/17 Time of Encounter: 11:00 - Assessment and plan (1) Acute respiratory failure with hypoxemia Current Visit: Yes Status: Acute Assessment and plan: Most likely 2/2 to HCAP with COPD exacerbation. Patient was on BIPAP last night. plan: - BIPAP as needed - scheduled Duonebs Q6hr -Solu-medrol 40mg IVO Q8hrs - antibiotics: started Unasyn 3,000mg Q6hr (initiated 08/27) - discontinued Zosyn, Vanco, and Flagyl (Day 2, 08/26), d/c of ancef x 2 days, levo in ED - Sputum cultures pending - BC no growth, prelim (2) HCAP (healthcare-associated pneumonia) Current Visit: Yes Status: Acute Assessment and plan: HCAP 2/2 to human metapneumovir virus with possible aspiration pneumonia. Normal Risk for 2/2 bacterial lung infections is low, but possible concurrent aspiration, if swallow study is negative can consider discontinuing antibiotics. [facility] CXR shows left lower lobe infiltrate with hx of coughing and fever. legionella neg, strep neg. Plan: - + human metapneumovir viruse, droplet precautions - antibiotics: started Unasyn (08/27) -d/c Zosyn, Vanco, and Flagyl (Day 2, 08/26), d/c of ancef x 2 days, levo in ED - Sputum cultures pending - BC no growth, prelim (3) History of CVA (cerebrovascular accident) Current Visit: No Status: Acute Assessment and plan: Resume Plavix and statin. (4) CKD (chronic kidney disease) stage 3, GFR 30-59 ml/min Current Visit: No Status: Chronic Assessment and plan: Avoic nephrotoxic meds. Around baseline. (5) HTN (hypertension) Current Visit: No Status: Chronic Assessment and plan: resume home meds: Lisinopril, metoprolol Qualifiers: Hypertension type: essential hypertension Qualified Code(s): I10 - Essential (primary) hypertension (6) COPD (chronic obstructive pulmonary disease) Current Visit: No Status: Chronic Assessment and plan: Possible exacerbation 2/2 to pneumonia. Patient currently refusing to wear NC and is satting at 91%. Plan: - duonebs - solumedrol 40mg IVP Q8hrs Qualifiers: COPD type: COPD with acute exacerbation Qualified Code(s): J44.1 - Chronic obstructive pulmonary disease with (acute) exacerbation (7) DVT prophylaxis Current Visit: No Status: Acute Assessment and plan: Heparin SQ (8) Anemia in chronic renal disease Current Visit: Yes Status: Acute Assessment and plan: Denies any signs of bleeding. Anemia most likely2/2 to CKD. Qualifiers: Chronic kidney disease stage: stage 3 (moderate) Qualified Code(s): N18.3 - Chronic kidney disease, stage 3 (moderate); D63.1 - Anemia in chronic kidney disease; D63.1 - Anemia in chronic kidney disease - Subjective Interval history: Giovana is a 71 y/o male with a PMH of COPD on 2 L O2 chronically, CKD3, HTN, previous CVA with residual aphasia, depression, who is sent for increase work of breathing,, cough, and pneumonia from nursing facility found to due to human metapneumovir virus but have not r/o aspiration pneumonia. Night of 08/26, episode of hypotension, fever, and depressed level of consciousness. CXR showed possible new RLL infiltrate, concerns for aspiration. Swallow studied ordered. Today, patient is responding to voice and follows commands sometimes. He is talking with some words comprehensible but most words inappropriate. Unable to review a 10 point review of systems due to patient's mental status. - Constitutional Vitals: Temp Pulse Resp BP Pulse Ox 98.0 F 95 14 123/70 97 08/27/17 07:19 08/27/17 09:48 08/27/17 09:48 08/27/17 09:48 08/27/17 09:48 Exam: Constitutional: Alert, in no acute distress, well nourished, well developed. Head: Normocephalic, atraumatic Heart: Normal, regular rate and rhythm, no murmurs Lungs:+ wheezes and rhonchi bilaterally Abdomen: Soft, nondistended, nontender, no guarding or rigidity. Extremities: No clubbing, cyanosis, or edema, radial pulse +2/4, capillary refill <2sec. Skin: Skin warm and dry, no lesions, no rashes, no jaundice Neurologic: Cranial nerves II through XII grossly intact, no focal deficits, strength 5/5 Psych: Patient responding to some commands, using words but most are inappropriate responses Internal Medicine: Result - Labs CBC & Chem 7: 08/27/17 02:51 08/27/17 02:45 Labs: Short CBC 08/27/17 Range/Units 02:51 WBC 9.2 (4.3-11.1) K/mcL Hgb 9.1 L (12.9-16.9) g/dL Hct 28.5 L (37.5-50.1) % Plt Count 157 (140-400) K/mcL BMP 08/27/17 02:45 Sodium 136 Potassium 3.8 Chloride 105 Carbon Dioxide 22 L BUN 24 H Creatinine 1.53 H Glucose 177 H Calcium 8.3 L - ABG Interpretation ABG results: ABG ABG pH 7.38 pH Units (7.32-7.45) 08/26/17 03:41 ABG pCO2 41 mmHg (35-45) 08/26/17 03:41 ABG pO2 74 mmHg (85-104) L 08/26/17 03:41 ABG O2 Saturation 94 % (95-98) L 08/26/17 03:41 Consult Discharge Plan - Plan Referrals: NONE,PCP [Primary Care Provider] -
[2017-08-27] MEDS ORDERED: *HR* Metoprolol 5 MG/5 ML VIAL IVP PRN ×2 (14:26→15:39)
--- NOTE | 2017-08-27 14:58 | Event Note ---
Date of Encounter: 08/27/17 Time of Encounter: 14:53 Patient seen and examined. Agree with the Resident's note as written by Dr. Sarmiento. I have provided supervision in the care of the patient. Admitted with acute hypoxic resp failure suspected to be from HCAP/asp pneumonia. Started on broad spectrum abx. Currently on vanco/zosyn/flagyl IV. Started on Solumedrol. Doing ashley now. On 3 L O2. 2 L chronically. WBC trending down Switch abx to Unasyn. Lopressor IV PRN for tachycardia MBS H/H drop likely dilutional
[2017-08-27] MEDS ORDERED: Haloperidol Lactate 5 MG/ML VIAL IVP PRN (15:39)
[2017-08-27] MEDS ORDERED: Naloxone 0.4 MG/ML INJ IVP PRN (15:39)
[2017-08-27] MEDS ORDERED: Acetaminophen 325 MG TABLET PO PRN (15:39)
[2017-08-27] MEDS: Ampicillin/Sulbactam 3,000 MG in 0.9 % Sodium Chloride Mini Bag 100 ML IVPB SCH (17:54)
[2017-08-27] MEDS ORDERED: Ampicillin/Sulbactam 3,000 MG in 0.9 % Sodium Chloride Mini Bag 100 ML IVPB SCH (18:00)
[2017-08-28] MEDS: Ampicillin/Sulbactam 3,000 MG in 0.9 % Sodium Chloride Mini Bag 100 ML IVPB SCH ×3 (00:31→11:51)
[2017-08-28] MEDS: MethylPREDNISolone 40 MG/ML VIAL IVP SCH ×2 (00:31→08:39)
[2017-08-28] MEDS: Ipratropium/Albuterol Neb 3 ML IH SCH ×2 (04:21→09:31)
[2017-08-28 04:36] LABS: Hematocrit 28.6 % (37.5-50.1); Hemoglobin 9.3 g/dL (12.9-16.9); Mean Corpuscular HGB Conc 32.5 g/dL (31.6-35.5); Mean Corpuscular Hemoglobin 28.6 pg (28.0-33.3); Mean Platelet Volume 9.2 fL (9.4-12.4); Platelet Count 187 K/mcL (140-400); Red Blood Count 3.25 M/mcL (4.19-5.50); Red Cell Distribution Width 13.6 % (11.5-14.5)
[2017-08-28 05:08] LABS: BUN/Creatinine Ratio 20 (6-26); Blood Urea Nitrogen 27 mg/dL (8-23); Calcium 8.9 mg/dL (8.6-10.3); Carbon Dioxide 25 mEq/L (23-29); Chloride 108 mEq/L (98-107); Glucose 145 mg/dL (70-105); Magnesium 2.1 mg/dL (1.6-2.6); Osmolality,Calculated 298 (280-300); Potassium 4.2 mEq/L (3.5-5.1); Sodium 140 mEq/L (136-145); eGFR For Non-African Americans 52 (> 60)
[2017-08-28] MEDS: *HR* Heparin 5,000 UNIT/ML VIAL SQ SCH (06:33)
[2017-08-28] MEDS ORDERED: Lisinopril 20 MG TABLET PO SCH (09:00)
[2017-08-28] MEDS ORDERED: Venlafaxine XR (24 HR) 75 MG CAP.ER.24H PO SCH (09:00)
--- NOTE | 2017-08-28 10:38 | Discharge Summary ---
<Elisabeth Velasquez M - Last Filed: 08/28/17 16:43> Date of Encounter: 08/28/17 - Discharge Diagnosis (1) Acute respiratory failure with hypoxia Status: Acute (2) HCAP (healthcare-associated pneumonia) Status: Acute (3) History of CVA (cerebrovascular accident) Status: Acute (4) CKD (chronic kidney disease) stage 3, GFR 30-59 ml/min Status: Chronic (5) HTN (hypertension) Status: Chronic Qualifiers: Hypertension type: essential hypertension Qualified Code(s): I10 - Essential (primary) hypertension (6) COPD (chronic obstructive pulmonary disease) Status: Chronic Qualifiers: COPD type: COPD with acute exacerbation Qualified Code(s): J44.1 - Chronic obstructive pulmonary disease with (acute) exacerbation (7) DVT prophylaxis Status: Acute Hospital course: Mr. Akhtar is a 71 year old male - Time Spent with Patient Total time spent providing and/or coordinating discharge services: - Discharge Medications Prescriptions: Amoxicillin/Clavulanate [Augmentin] 875 mg PO BIDWM #14 tablet predniSONE [PredniSONE] See Taper PO TAPER #30 tablet Home Medications: Clopidogrel [Plavix] 75 mg PO DAILY 05/31/16 [History] Lisinopril [Zestril] 40 mg PO DAILY 05/31/16 [History] Metoprolol XL (24 HR) Succ [Toprol Xl] 50 mg PO DAILY 05/31/16 [History] Simvastatin [Zocor] 20 mg PO HS 05/31/16 [History] Terazosin [Hytrin] 1 mg PO HS 05/31/16 [History] Venlafaxine XR (24 HR) [Effexor XR] 75 mg PO DAILY 05/31/16 [History] Docusate [Colace] 100 mg PO BID PRN #30 capsule 06/02/16 [Rx] Multivitamin [Multi-Day Vitamins] 1 each PO DAILY 08/11/16 [History] Acetaminophen [Tylenol] 650 mg PO Q8H PRN 07/02/17 [History] risperiDONE [RisperDAL] 0.25 mg PO BID 07/02/17 [History] LORazepam [Ativan] 0.5 mg PO ONCE PRN 08/25/17 [History] LORazepam [Ativan] 1 mg PO HS 08/25/17 [History] Amoxicillin/Clavulanate [Augmentin] 875 mg PO BIDWM #14 tablet 08/28/17 [Rx] predniSONE [PredniSONE] See Taper PO TAPER #30 tablet 08/28/17 [Rx] Allergies/Adverse Reactions: 3 Allergy/AdvReac Type Severity Reaction Status Date / Time No Known Allergies Allergy Verified 05/30/16 23:20 Date of admission: 08/25/17 19:03 Primary care physician: PCP NONE Consults: 08/26/17 06:46 Consult to Pulmonology [CONS] Routine Consulting Provider: [facility] Reason for Consult: hypoxic respiratory failure Time Notified: 06:46 Call Completed: Yes 08/27/17 08:55 Consult to Speech Therapy [CONS] Routine Comment: Evaluate, develop and implement POC Reason for Consult: swallow eval Call Completed: No - Constitutional Vitals: Temp Pulse Resp BP Pulse Ox 97.4 F L 66 16 131/51 100 08/28/17 11:32 08/28/17 11:32 08/28/17 11:32 08/28/17 11:32 08/28/17 11:32 - Patient Status Disposition: Transfer SNF Condition: Good - Discharge Instructions Follow Up With: NONE,PCP [Primary Care Provider] - Additional Instructions: Follow-up with the physician at the assisted in 2-3 days. Please take your prednisone as described below: 4 tablets for 3 days then 3 tablets for 3 days then 2 tablets for 3 days then 1 tablet for 3 days then stop. Please take antibiotics as prescribed for 7 days. Due to abnormal barium swallow study patient's diet has been switched to pureed nectar thickened diet. - Attending Attestation I examined this patient and my medical decision-making was reviewed with the Resident Physician. I agree with the discharge summary documentation, disposition and treatment plan as described except to the extent set forth below. <Ammy Sarmiento - Last Filed: 08/28/17 17:50> - NOTES TO OUTPATIENT PROVIDER Notes to Outpatient Provider: Patient will be placed in a prednisone taper of 40 mg daily for 3 days, then decrease by 10mg every 3 days. Patient will need a follow-up x-ray in 1 month to make sure infiltrates have resolved. Patient will be placed on Augmentin for 7 days. Patient's diet has changed to pureed nectar thickened diet. Date of Encounter: 08/28/17 Time of Encounter: 10:45 - Discharge Diagnosis (1) Acute respiratory failure with hypoxemia Priority: Primary Status: Acute (2) HCAP (healthcare-associated pneumonia) Priority: Secondary Status: Acute (3) History of CVA (cerebrovascular accident) Priority: Secondary Status: Acute (4) CKD (chronic kidney disease) stage 3, GFR 30-59 ml/min Priority: Secondary Status: Chronic (5) HTN (hypertension) Priority: Secondary Status: Chronic Qualifiers: Hypertension type: essential hypertension Qualified Code(s): I10 - Essential (primary) hypertension (6) COPD (chronic obstructive pulmonary disease) Priority: Secondary Status: Chronic Qualifiers: COPD type: COPD with acute exacerbation Qualified Code(s): J44.1 - Chronic obstructive pulmonary disease with (acute) exacerbation (7) DVT prophylaxis Priority: Secondary Status: Acute (8) Anemia in chronic renal disease Priority: Secondary Status: Acute Qualifiers: Chronic kidney disease stage: stage 3 (moderate) Qualified Code(s): N18.3 - Chronic kidney disease, stage 3 (moderate); D63.1 - Anemia in chronic kidney disease; D63.1 - Anemia in chronic kidney disease Hospital course: Mr. Akhtar is a 71 year old male PMH of COPD on 2 L O2 chronically, CKD3, HTN, previous CVA with residual aphasia, and depression who presented to the ED from [facility] for increase work of breathing cough and a chest x- ray from the assisted showing multifocal pneumonia and was found to have HCAP secondary to human metapneumovir virus with possible aspiration pneumonia. The assisted placed her on Ancef for 2 days but breathing worsened. Chest x-ray showed left lower lobe airespace disease. Patient was placed on Solu-Medrol and DuoNebs. Blood cultures showed no growth. Patient was initially started on Zosyn, vancomycin and Flagyl and was deescalated down to Unasyn. Upon arrival he was placed on BiPAP and weaned to room air over the course of the hospital stay. There was concern for aspiration pneumonia and so barium swallow was performed and speech consult to determine that diet should be changed to pureed nectar diet. Patient was discharged on a prednisone taper (starting at 40 mg for 3 days and decreasing by 10 mg every 3 days) and Augmentin for 7 days. Patient is instructed to follow-up with checks x-ray in 4 weeks to assure resolution of abnormal chest x-ray findings. Patient was stable and was discharged back to [facility]. Discharge discussed with: patient - Time Spent with Patient Total time spent providing and/or coordinating discharge services: Date of admission: 08/25/17 19:03 Primary care physician: PCP NONE Consults: 08/26/17 06:46 Consult to Pulmonology [CONS] Routine Consulting Provider: [facility] Reason for Consult: hypoxic respiratory failure Time Notified: 06:46 Call Completed: Yes 08/27/17 08:55 Consult to Speech Therapy [CONS] Routine Comment: Evaluate, develop and implement POC Reason for Consult: swallow eval Call Completed: No Discharging clinician: Elisabeth Velasquez Anticipated date of discharge: 08/28/17 - Constitutional Vitals: Temp Pulse Resp BP Pulse Ox 98.4 F 101 17 130/74 94 08/28/17 07:20 08/28/17 09:00 08/28/17 07:20 08/28/17 07:20 08/28/17 07:20 Exam: Constitutional: Alert responding to most questions appropriately, in no acute distress, well nourished, well developed. Head: Normocephalic, atraumatic Heart: Normal, regular rate and rhythm, no murmurs Lungs:+ wheezes expiratory, Abdomen: Soft, nondistended, nontender, no guarding or rigidity. Extremities: No clubbing, cyanosis, or edema, radial pulse +2/4, capillary refill <2sec. Skin: Skin warm and dry, no lesions, no rashes, no jaundice Neurologic: Cranial nerves II through XII grossly intact, no focal deficits, unable to lift R leg but can wiggle toes, strength 5/5 in all other extremities Psych: Patient responding to most commands, using words with most answers appropriate, speech is slurred and stuttering present but improved from yesterday - Patient Status Functional capacity at discharge: wheelchair bound Overall status at discharge: patient is progressing back to baseline - Diet and Activity Activity: as per physical therapy, increase activity as tolerated Diet: other (Pureed nectar thickened diet)
[2017-08-28] MEDS ORDERED: Metoprolol XL (24 HR) Succ 50 MG TAB.ER.24H PO SCH (10:45)
--- NOTE | 2017-08-28 11:06 | Physician Discharge Referral ---
ExtendedCare Referral Info Transfer To: [facility] Provider in Charge: Elisabeth Velasquez Provider in Charge after Transfer: PCP, Other (physician at SNF) Institutional Level of Care: Skilled - Diagnosis (1) Acute respiratory failure with hypoxemia Priority: Primary Status: Acute (2) HCAP (healthcare-associated pneumonia) Priority: Secondary Status: Acute (3) History of CVA (cerebrovascular accident) Priority: Secondary Status: Acute (4) CKD (chronic kidney disease) stage 3, GFR 30-59 ml/min Priority: Secondary Status: Chronic (5) HTN (hypertension) Priority: Secondary Status: Chronic (6) COPD (chronic obstructive pulmonary disease) Priority: Secondary Status: Chronic (7) DVT prophylaxis Priority: Secondary Status: Acute (8) Anemia in chronic renal disease Priority: Secondary Status: Acute - Transfer Medications Prescriptions: Amoxicillin/Clavulanate [Augmentin] 875 mg PO BIDWM #14 tablet predniSONE [PredniSONE] See Taper PO TAPER #30 tablet Home Medications: Clopidogrel [Plavix] 75 mg PO DAILY 05/31/16 [History] Lisinopril [Zestril] 40 mg PO DAILY 05/31/16 [History] Metoprolol XL (24 HR) Succ [Toprol Xl] 50 mg PO DAILY 05/31/16 [History] Simvastatin [Zocor] 20 mg PO HS 05/31/16 [History] Terazosin [Hytrin] 1 mg PO HS 05/31/16 [History] Venlafaxine XR (24 HR) [Effexor XR] 75 mg PO DAILY 05/31/16 [History] Docusate [Colace] 100 mg PO BID PRN #30 capsule 06/02/16 [Rx] Multivitamin [Multi-Day Vitamins] 1 each PO DAILY 08/11/16 [History] Acetaminophen [Tylenol] 650 mg PO Q8H PRN 07/02/17 [History] risperiDONE [RisperDAL] 0.25 mg PO BID 07/02/17 [History] LORazepam [Ativan] 0.5 mg PO ONCE PRN 08/25/17 [History] LORazepam [Ativan] 1 mg PO HS 08/25/17 [History] Amoxicillin/Clavulanate [Augmentin] 875 mg PO BIDWM #14 tablet 08/28/17 [Rx] predniSONE [PredniSONE] See Taper PO TAPER #30 tablet 08/28/17 [Rx] Allergies/Adverse Reactions: 3 Allergy/AdvReac Type Severity Reaction Status Date / Time No Known Allergies Allergy Verified 05/30/16 23:20 - Respiratory Orders Smoking Cessation: Smoking cessation has been advised. For more information, call the [place] Tobacco Quit Line at 9-588-COST-NOW. - Ancillary Orders May use pressure relief devices daily prn, May go on GIGI w/family/respon libertarian w /meds at nurse discretion PRN, May consult with Dentist, Financial Internship, Security Officer Supervisor PRN - Mobility Orders Chair - Rehabiliation Orders Rehab Orders: ROM Exercises, Evaluation for Physical Therapy, Evaluation for Occupational Therapy - Treatments Skin tear care topically daily PRN per policy, May check for fecal impaction rectally daily PRN, Fleet enema rectally every other day PRN cleansing purposes - Diet Orders Pureed (Wintergreen thickened) CERTIFICATION: I certify that the transfer of the above named patient to an Extended Care Facility is necessary for the continuing treatment of the diagnosis listed. The above information is true and accurate reflection of patient's current condition. Confidential - Redisclosure prohibited without a patient's written consent.
[2017-08-28 11:35] VITALS: BP 131/51
--- NOTE | 2017-08-28 18:22 | Electrocardiograph Report ---
[address] [place], [place] [address] Test Date: 2017-08-25 Pat Name: Óscar Akhtar Department: 104 Room: 2N11 Gender: M Vein Access Technician: VIANEY : 1945 Requested By: Fidencio Lewis Order Number: [id number] Reading MD: Jorge Lal Measurements Intervals [place] Rate: 80 P: 74 DC: 187 QRS: -51 QRSD: 93 T: 49 QT: 352 QTc: 388 Interpretive Statements SINUS RHYTHM WITH SINUS ARRHYTHMIA LOW QRS VOLTAGE IN PRECORDIAL LEADS LEFT ANTERIOR FASCICULAR BLOCK SEPTAL MYOCARDIAL INFARCTION , PROBABLY OLD Electronically Signed On 08-28-2017 18:20:55 EST by Jorge Lal
== END 2017-08-28 13:32 | DRG 871 ==
LOC: EMEROO 16:16 → 2ANU 16:16 → ICNU 08-26 00:56 → 2NNU 08-27 03:59
PROVIDERS: ADMIT Family Medicine; ATTEND Internal Medicine